=== PATIENT | male | born 1985 | race Caucasian/White ===

== ENCOUNTER 2024-04-16 06:47 | Inpatient (IN) | payer OTHER, SELFPAY ==
[2024-04-16] VITALS (46 sets, daily range): BP systolic 88–145; BP diastolic 57–95; BMI 33.5; BMI 31.3
[2024-04-16] MEDS: ZOFRAN 4 MG IV (02:02)
[2024-04-16 02:03] LABS: % Basophils 0.8 % (0-2); % Eosinophils 5.9 % (0-6); % Lymphocytes 25.6 % (20.5-51.1); % Monocytes 7.2 % (1.7-9.3); % Neutrophils 58.5 % (42.2-75.2); Absolute Basophils 0.1 10^3/uL (0-0.2); Absolute Eosinophils 0.9 10^3/uL (0-0.7); Absolute Immature Granulocytes 0.3 10^3/uL (0-0.05); Absolute Lymphocytes 3.8 10^3/uL (1.2-3.4); Absolute Monocytes 1.1 10^3/uL (0.1-0.6); Absolute Neutrophils 8.6 10^3/uL (1.4-6.5); Hematocrit 29.5 % (39.0-52.0); Hemoglobin 9.7 g/dL (13.0-18.0); Mean Corp Hgb Conc. 32.9 g/dL (33.0-37.0); Mean Platelet Volume 11.3 fL (7.4-10.4); Nucleated Red Blood Cells % 0 % (-); Platelet Count 256 10^3/uL (130-400); Red Blood Cell Count 3.47 10^6/uL (4.70-6.10); Red Cell Dist. Width 13.9 % (11.5-14.5); White Blood Cell Count 14.7 10^3/uL (4.8-10.8)
[2024-04-16] MEDS: NSS 1000 IV ×3 (02:03→07:23)
[2024-04-16 02:16] LABS: ALT (SGPT) 23 U/L (0-50); AST (SGOT) 21 U/L (17-59); Albumin 3.9 g/dl (3.5-5.0); Alkaline Phosphatase 71 U/L (38-126); Blood Urea Nitrogen 41 mg/dl (9-20); Calcium 9.1 mg/dl (8.4-10.2); Carbon Dioxide 20 mmol/L (22-30); Chloride 104 mmol/L (98-107); Estimated Creatinine Clearance > 125 ml/min; Glucose 152 mg/dl (70-99); Potassium 4.8 mmol/L (3.5-5.1); Sodium 138 mmol/L (135-145); Total Bilirubin 0.4 mg/dl (0.2-1.3); Total Protein 6.3 g/dl (6.3-8.2); eGFR > 60.00
[2024-04-16 02:18] LABS: Lactic Acid 3.4 mmol/L (0.7-2.0)
--- NOTE | 2024-04-16 02:21 | ED.GENMED ---
History of Present Illness
General
Chief Complaint: Weakness
Time Seen by Provider: 04/16/24 02:00
History of Present Illness
History of Present Illness:
38-year-old male with history of recent diagnosis of Lyme's disease presenting to the emergency department for generalized weakness, fatigue, syncope. Patient had 2 syncopal episodes prior to arrival. Patient arrives with family, note recent
prolonged hospitalization at [facility] for sepsis. Patient had array of testing including lumbar puncture, MRI, laboratory analysis. Only positive feature in workup was Lyme's disease. Patient had been treated with antivirals and
antibiotics and discharged home. He is scheduled to follow-up with infectious disease this week. He was discharged about a week and a half ago. Family notes that he has had waxing and waning weakness and fatigue. Today was worse than it had been
in the past, but patient is very pale. Patient himself denies chest pain, cough, fever. Does note some generalized abdominal discomfort without vomiting or changes in stool. Patient has never passed out from his symptoms. No additional history
obtained at this time
Phy Exam
Physical Exam
Physical Exam:
General: Very pale, fatigued in appearance
HEENT: protecting airway
Neck: appears supple
CV: Normal heart rate, regular rhythm
Resp: No accessory muscle use, no increased work of breathing, lungs clear to auscultation bilaterally
Abd: Soft and non-distended, generalized nonfocal tenderness without rebound or guarding
Extremities: No deformities, no swelling, no erythema, pulses and sensation intact
Neuro: alert, no focal neurologic deficit. Slow to respond, however answering questions appropriately. Moving all extremities equally, however 4/5 strength in lower extremities, equal bilaterally
: deferred
Rectal: deferred
Psych: Normal affect
Skin: Intact
Sepsis
Sepsis Screening
Sepsis Assessment: Septic Shock
Sepsis Screening: Lactate >2mmol/L and Hypotension
Sepsis Screen
Sepsis Screen: Septic Shock
Date: 04/17/24
Time: 11:06
Course
Orders/Labs/Results
Orders:
Orders
04/16/24 01:49
Electrocardiogram (*1) Urgent
Reason for Study: Other
Other Reason for Exam: Possible Sepsis
Cardiac Monitoring- Treatment ONCE
EKG- Treatment ONCE
IV Insert/Care/Rem.- Treatment PRN
Straight cath- Treatment ONCE
O2 Therapy [RESP] Urgent
Titrate/Wean O2 to maintain O2 sat greater than (%): 93
Special Instructions: TO MAINTAIN CONTINUOUS O2 SATS > OR = 93%
Pulse Ox/cont/shift [RESP] Urgent
Quantity: 1
Special Instructions: CONTINUOUS
04/16/24 01:53
Complete Blood Count/With Diff Urgent
Comprehensive Metabolic Panel Urgent
Ferritin Urgent
Folate Urgent
Comment: SERUN IRON,FERRITIN,TIBC,B12,FOLATE ADDED ON BY FLOOR 7:50AM 04-16-24
Iron Urgent
Lactic Acid Q4H
Comment: ON ICE, CANCEL 2ND ORDER IF FIRST LACTIC ACID LEVEL <2
Lipase Urgent
Comment: LIPASE ADDED ON BY FLOOR 9:45AM 04-16-24
Total Iron Binding Urgent
Urinalysis Reflex To Culture Urgent
Date Specimen was Collected: 04/16/24
Time Specimen was Collected: 01:49
Vitamin B12 Urgent
04/16/24 01:55
Type+Screen Urgent
04/16/24 01:57
Ondansetron Injectable [Zofran] 4 mg .ROUTE .STK-MED ONE
04/16/24 02:00
0.9% Sodium Chloride 1000 ml [Nss] 1,000 ml IV BOLUS
Ondansetron Injectable [Zofran] 4 mg IV NOW STA
04/16/24 02:06
COVID-19 Antigen Urgent
Source: Nasal Swab
04/16/24 02:20
CT Abd/pelvis W Iv Cont Urgent
Comment:
Reason For Exam: generalized pain, pale and weak
04/16/24 02:21
ABO2 Urgent
BBK Wristband Number:
Associate notified that ABO2 has been ordered: [id number]
Date: 04/16/24
Time: 02:20
Road Grader Operator ID: [id number]
04/16/24 02:26
0.9% Sodium Chloride 1000 ml [Nss] 1,000 ml IV BOLUS
Piperacillin/Tazo 4.5 Gram [Zosyn] 4.5 gram in 100 ml IV NOW
04/16/24 03:01
Blood Culture Routine
ILAN Source: Blood/Venous
Specimen Description:
Blood Culture Urgent
ILAN Source: Blood/Venous
Specimen Description:
04/16/24 05:30
Pantoprazole 80 mg/100 ml Nss [Protonix] 80 mg in 100 ml IV Q10H
04/16/24 05:34
Complete Blood Count/With Diff Urgent
Lactic Acid Q4H
Comment: ON ICE, CANCEL 2ND ORDER IF FIRST LACTIC ACID LEVEL <2
Prothrombin Time Urgent
04/16/24 05:52
* Blood Bank Products Urgent
Blood Bank Products: *Packed RBC Leuko(PRBC's)
Quantity: 2
Transfuse Today: Yes
Reason: Bleeding
04/16/24 Breakfast
NPO
Allow oral meds: Yes
Allow clear liquids: Sips of Clears
04/16/24 06:07
Ct Cta A/P W/Wo Urgent
Reason For Exam: GI bleed
04/16/24 06:35
Admit/Transfer Patient As Directed
Co-Sign Provider:
Level of Care: Inpatient admission
Assign to:: ICU
Physician / Group: [facility]
Diagnosis: GI Bleed, Severe Symptomatic Anemia
Reason for Hospitalization: GI Bleed, Severe Symptomatic Anemia
Expected length of stay greater than two midnights?: Yes
ELOS- Estimated Length of Stay in days: 5
I certify the patient meets the requirements for IP care: Yes
PRN Pain Medication Management As Directed
May give lesser potent ordered pain med per pt: Yes
preference::
Protocol:: Medication orders for pain may be administered in a
manner that supports deferring to patient preference
when the pt is:
- Requesting an ordered lesser potent pain medication.
Least to most potent pain medications are defined
as: acetaminophen < NSAID < tramadol < opioids
(morphine, oxycodone, hydromorphone).
- Requesting a lesser dose of the same medication IF
ORDERED.
- Requesting a less intrusive route of administration
if both routes are prescribed by the provider (PO <
IV).
04/16/24 06:37
Code Status As Directed
Resuscitation Status: Full Code
04/16/24 07:19
0.9% Sodium Chloride 1000 ml [Nss] 1,000 ml IV 250 mls/hr
04/16/24 07:37
Acetaminophen [Tylenol] 650 mg PO Q4HPRN PRN
Ondansetron Injectable [Zofran] 4 mg IV Q6HPRN PRN
Pantoprazole 80 mg/100 ml Nss [Protonix] 80 mg in 100 ml IV Q10H
04/16/24 07:37
Consult Notification Routine
Specialty to Notify: Parking Supervisor
Date consulting provider notified: 04/16/24
Time consulting provider notified: 08:23
Notified:: Provider
GASTROINTESTINAL CONSULT Routine
Consulting Provider: Negra Stubbs
Was physician already notified: Yes
Reason for consult: GI Bleed
Parking Supervisor Consult Routine
Consulting Provider: Loulou Khalil
Was physician already notified: No
Reason for consult: GI Bleed, Severe Anemia
Activity As Directed
Activity Level: Bedrest
EKG with chest pain [ECG as needed] As Directed
ECG as needed for:: Chest Pain
I/O [Intake/ Output] As Directed
Frequency: Per unit guidelines
Pneumatic Compression Sleeves As Directed
Type: Knee high
Records Request [Obtain Records] As Directed
Dates of Information to be Released: Most Recent
Type of Information Requested: Entire Record
Obtain Records from: [facility]
Vital Signs As Directed
Frequency: Per unit guidelines
Weight As Directed
Frequency: Daily
Oxygen Therapy [O2 Therapy] [RESP] Routine
Titrate/Wean O2 to maintain O2 sat greater than (%): 94
DX Deep Vein Thrombosis Video Routine
04/16/24 07:59
HH [H&H] Q6H
LDH Urgent
04/16/24 19:40
HH [H&H] Q6H
04/17/24 01:21
HH [H&H] Q6H
04/17/24 05:49
Basic Metabolic Panel IN AM
Abnormal Lab Results
04/16/24 04/16/24 04/16/24
01:53 01:55 05:34
WBC 14.7 H 10^3/uL
(4.8-10.8)
RBC 3.47 L 10^6/uL 1.49 L 10^6/uL
(4.70-6.10) (4.70-6.10)
Hgb 9.7 L g/dL 4.1 L* D g/dL
(13.0-18.0) (13.0-18.0)
Hct 29.5 L % 12.5 L* %
(39.0-52.0) (39.0-52.0)
MCHC 32.9 L g/dL 32.8 L g/dL
(33.0-37.0) (33.0-37.0)
Plt Count 127 L D 10^3/uL
(130-400)
MPV 11.3 H fL 11.1 H fL
(7.4-10.4) (7.4-10.4)
Abs Immat Gran (auto) 0.3 H 10^3/uL 0.2 H 10^3/uL
(0-0.05) (0-0.05)
Absolute Neuts (auto) 8.6 H 10^3/uL
(1.4-6.5)
Absolute Lymphs (auto) 3.8 H 10^3/uL
(1.2-3.4)
Absolute Monos (auto) 1.1 H 10^3/uL
(0.1-0.6)
Absolute Eos (auto) 0.9 H 10^3/uL
(0-0.7)
Immature Gran % 2.0 H % 2.2 H %
(0-0.5) (0-0.5)
Lymphocytes % 20.0 L %
(20.5-51.1)
PT 19.3 H Sec
(11.4-14.6)
Carbon Dioxide 20 L mmol/L
(22-30)
BUN 41 H mg/dl
(9-20)
Glucose 152 H mg/dl
(70-99)
Lactic Acid 3.4 H mmol/L 2.3 H mmol/L
(0.7-2.0) (0.7-2.0)
TIBC 229 L ug/dl
(261-462)
Crossmatch IS Only See Detail
04/16/24 05:34
04/16/24 01:53
Vital Signs
Initial and Last Documented VS:
Initial Vital Signs
Temp Pulse Resp BP Pulse Ox
98.1 F 106 30 110/86 99
04/16/24 01:40 04/16/24 01:40 04/16/24 01:40 04/16/24 01:40 04/16/24 01:40
Last Documented Vital Signs
Temp Pulse Resp BP Pulse Ox
98.1 F 83 18 146/91 96
04/17/24 10:14 04/17/24 10:14 04/17/24 10:14 04/17/24 10:14 04/17/24 08:00
MDM/Problems Addressed
MDM/Problems Addressed:
38-year-old male with history of recent Lyme's disease and complicated hospital admission for sepsis at [facility] presenting for weakness, fatigue, syncope. Vital signs on arrival significant for tachycardia.
On exam, patient is in no acute distress, however does appear generally unwell. He is very pale, weak and fatigued in appearance. Unremarkable cardiac and pulmonary exam. On neurologic exam, answering questions appropriately, strength and
sensation intact all extremities, however generalized weakness to the lower extremities. Abdominal exam, soft nondistended with generalized nonfocal tenderness. Unclear etiology of patient's symptoms, however concern for possible anemia given his
paleness. Will initiate broad workup given recent hospital admission and worsening status. Will obtain laboratory analysis, lactic acid, cultures, and also had CT abdomen pelvis given patient's tenderness. Will start patient on IV fluids.
02:20 - Hemoglobin is 9.4, without indication for transfusion. Lactic acid is greater than 3. Will continue IV fluids. Patient is now meeting sepsis criteria, also leukocytosis. Blood pressure is slightly low. Will start broad-spectrum
antibiotics.
02:45-patient vomited, dark brown, Hemoccult positive
05:00 -CT without acute process. After 2 L of fluids, blood pressure is still slightly low, however maintaining normal MAP. Will continue IV fluids and continue to monitor. At this time, unclear source of infection. Plan for admission for
continued hemodynamic monitoring
05:20 -patient just had a large bowel movement, dark red blood. GI made aware
05:50 -hemoglobin is now 4.1. Patient consented. Ordering 2 units of blood
07:00 -called by radiology, no active signs of arterial bleed on GI bleeding scan. GI at bedside, plan for endoscopy for suspected upper source.
*Critical Care Note
Total Time (30-74mins, 75-104mins- exclusive of procedures): 62 (62)
comment:
The high probability of a clinically significant, sudden or life threatening deterioration, sepsis, required my full and direct attention, intervention and personal management. The aggregate critical care time was 62 minutes. This time is in
addition to time spent performing reported procedures but includes the following:
[x] Data Review and interpretation
[x] Patient assessment and monitoring of vital signs
[x] Documentation
[x] Medication orders and management
ED Attending Note
-
Portions of this chart may have been created with voice recognition software.� Occasional wrong word or��sound alike� substitutions may have occurred due to the inherent limitations of voice recognition software.
Discharge Plan
Departure
Patient Disposition: Admit
Date of Disposition: 04/16/24
Time of Disposition: 05:11
Presentation/result/management discussed w/ accepting MD/DO: Hospitalist
Condition: Fair
Discharge Problem:
Sepsis, Weakness, GI bleed
Interventions
Interventions:
*Risk Screen - Suicide Last Done: 04/16/24 10:04
*General Assessment Last Done: 04/16/24 07:02
*Neglect/Abuse Screening Last Done: 04/16/24 01:40
ED- Fall Risk Assessment Last Done: 04/16/24 07:02
*ED COVID-19 Vaccine History Last Done: 04/16/24 07:02
*Nursing Disposition Last Done: 04/16/24 08:06
ED- Cardiac Assessment Last Done: 04/16/24 07:02
ED- Neurological Assessment Last Done: 04/16/24 07:02
ED- Pulmonary Assessment Last Done: 04/16/24 07:02
Discharge Date and Time
Discharge Date/Time: 04/16/24 08:06
[2024-04-16 02:27] LABS: COVID-19 Antigen Negative (Negative)
[2024-04-16] MEDS: ZOSYN 100 IV (02:57)
[2024-04-16] MEDS: PROTONIX 100 IV ×2 (05:40→16:50)
[2024-04-16 05:48] LABS: % Basophils 0.1 % (0-2); % Eosinophils 0.7 % (0-6); % Immature Granulocytes 2.2 % (0-0.5); % Monocytes 5.1 % (1.7-9.3); % Neutrophils 71.9 % (42.2-75.2); Absolute Eosinophils 0.1 10^3/uL (0-0.7); Absolute Immature Granulocytes 0.2 10^3/uL (0-0.05); Absolute Lymphocytes 1.5 10^3/uL (1.2-3.4); Absolute Monocytes 0.4 10^3/uL (0.1-0.6); Absolute Neutrophils 5.3 10^3/uL (1.4-6.5); Hematocrit 12.5 % (39.0-52.0); Hemoglobin 4.1 g/dL (13.0-18.0); Mean Corp Hgb Conc. 32.8 g/dL (33.0-37.0); Mean Corpuscular Hgb 27.5 pg (27.0-31.0); Mean Corpuscular Volume 83.9 fL (80.0-94.0); Mean Platelet Volume 11.1 fL (7.4-10.4); Nucleated Red Blood Cells % 0 % (-); Platelet Count 127 10^3/uL (130-400); Red Blood Cell Count 1.49 10^6/uL (4.70-6.10); White Blood Cell Count 7.3 10^3/uL (4.8-10.8)
[2024-04-16 05:50] LABS: Urine Albumin Negative (Neg - Trace); Urine Bilirubin Negative (Negative); Urine Character Clear (Clear); Urine Color Straw; Urine Glucose Negative (Negative); Urine Ketone Negative (Negative); Urine Leukocyte Negative (Negative); Urine Nitrite Negative (Negative); Urine Occult Blood Negative (Negative); Urine Urobilinogen Negative (Neg - 1+)
[2024-04-16 05:53] LABS: Lactic Acid 2.3 mmol/L (0.7-2.0)
[2024-04-16 05:58] LABS: INR 1.64; PT 19.3 Sec (11.4-14.6)
--- NOTE | 2024-04-16 06:30 | CON.GI ---
Addendum entered and electronically signed by Negra Stubbs DO 04/16/24 09:21:
Patient seen and examined independently of FADUMO. I agree with her note with my additions below
History is taken from his mother who is at bedside, the patient and the chart
Apparently neck has been ill for the last couple of months and was recently discharged from [facility] for sepsis with a questionable Lyme's disease after an extensive workup. He was home for couple of weeks. He has been on doxycycline and
taking 1-2 Aleve daily for body pains. States he was supposed to be taking omeprazole to protect his stomach but he was not. He had been having 1-2 brown formed stools daily then yesterday he syncopized twice upon standing. Has had reduced
appetite. Generalized aches and pains and joint pain. Denies any chronic GI issues prior to this. No prior history of GI bleed. Not on any blood thinners. Does feel nauseous and has significant epigastric tenderness. Had coffee-ground emesis
last night and passed maroon stool from the rectum. He is mildly tachycardic but hemodynamically stable. PPI drip, empiric antibiotics symptoms started. Has been transfused [address] abdomen pelvis with IV contrast was unrevealing.
CTA report is pending. His hemoglobin and labs have been somewhat all over the place.
# GI bleed -currently hemodynamically stable blood pressure 124/70 with a heart rate of 70.
-- Likely NSAID induced, more likely upper GI in the setting of significant NSAIDs and doxycycline not on PPI at home
-- Had coffee-ground emesis last night with maroon stool this morning
-- PPI drip started, receiving 2 units of blood - patient did NOT get loading dose of 80mg IV - ordered now
-- CT angio night read shows no definitive active extravasation in the colon and intraluminal density in the duodenum. No active extravasation identified on the current exam.
--- Hemoglobin on admission was 9.7 then dropped to 4.1 and after 1 unit was 7.4. These seem somewhat unreliable -currently getting second unit
--- His INR was 1.6, no history of liver disease or heavy alcohol use. Has not had any alcohol in a year and a half since his daughter was born. Did give him IV vitamin K. He has not been eating well perhaps somewhat deficient
--Plan for EGD this afternoon
--Discussed with his mother, Dora at bedside
Original Note:
Consultation
-
Date/Time Consultation Requested: 04/16/24
Date/Time Consultation Performed: 04/16/24 @ 06:30
Requesting Provider: Bridget Han
Performing Provider: FADUMO Jacobsen; Dr. Negra Stubbs
Reason for Consultation: GI bleed
Medical History
Chief Complaint / HPI
Chief Complaint: weakness
History of Present Illness:
The pt is 38 yo male with a PMH significant for Lyme's disease recently diagnosed who presented to the ER with complaints of weakness, fatigue, and syncope at home. We are being asked to evaluate for GI bleed. The patient reportedly had been
diagnosis of Lyme's disease with extensive workup and hospitalization at [place] for sepsis. Per the patient's mother they cannot find any other explanation for his severe fatigue and weakness that he has been experiencing the past month. After
discharge he continued with symptoms, increasingly fatigued and experiencing generalized body pains. He reports that he was taking Aleve up to twice a day every day for the past week to manage the pain. Yesterday he had 2-3 syncopal episodes at
home where he lost consciousness witnessed by his . He denies any passage of black or dark stool at home although he was not paying attention to the color of his stool recently. He notes that he has been losing weight unintentionally given he
has had a reduced appetite with his ongoing symptoms. He does admit to chills and feeling feverish yesterday evening. He reports generalized pain throughout his entire body, but does not have a tenderness in his upper abdomen which developed last
night. He denies any chronic GI problems prior to this onset. He denies any history of GI bleed. He denies any use of blood thinners. He denies any further vomiting, but does still feel nauseous. He denies any prior EGD or colonoscopy. He
denies any prior history of liver disease or alcohol use. Upon evaluation in the ER hgb initially was 9.7. The pt reportedly had an episode of coffee ground emesis which was heme + along with a large volume of dark red blood passed from his rectum.
A CT A/P was obtained initially, and now CTA which is pending. His repeat hgb dropped to 4.1 and 2 units were ordered for infusion urgently. He has been mildly tachycardic but hemodynamically stable thus far. PPI gtt was started along with IV Zosyn
for concern of sepsis. EKG showed SR at 100bpm with incomplete RBBB. He is being admitted to the ICU for further evaluation and management. Other pertinent lab findings include platelets 127,000, INR 1.64, BUN 41, sodium HCO3 20, lactic acid 3.4,
with normal LFTs.
Past Medical History
Past Medical History: Other (Lyme's disease)
Past Surgical History: Orthopedic (Spinal fusion)
Social History
Tobacco: Non-Smoker
Alcohol: None
Drug: None
Living: With Family
Family History
Family History: Reviewed & Not Pertinent
Allergies / Home Medications
Allergy/AdvReac Type Severity Reaction Status Date / Time
NKA - No Known Allergies Allergy Severe Uncoded 11/04/07 12:24
Review of Systems
-
History Source: Patient
Constitutional: Reports Fever, Weight Loss and Chills
EENT: Reports No Symptoms
Respiratory: Reports No Symptoms
Cardiac: Reports Syncope
Abdomen/GI: Reports Abdominal Pain, Nausea, Vomiting, Bloody Stools and Other (Coffee-ground emesis)
: Reports No Symptoms
Musculoskeletal: Reports Other (Generalized body pain)
Skin: Reports No Symptoms
Neurological: Reports Dizzy and Weakness
Vital Signs
Temp Pulse Resp BP Pulse Ox
98.1 F 110 22 115/71 99
04/16/24 03:43 04/16/24 06:00 04/16/24 05:45 04/16/24 06:00 04/16/24 05:45
Physical Exam
Exam
General: Other (Ill-appearing, pale)
HEENT: Normocephalic and Atraumatic
Respiratory: Clear
Cardiac: S1/S2, Regular Rhythm and Other (Sinus tachycardia on telemetry monitoring)
Breast: N/A
GI: Soft, Normal Bowel Sounds, Tender (Significant tenderness in the midepigastric area with generalized tenderness throughout the abdomen) and Distended (Minimally distended)
Rectal: Deferred by Provider and Other (Per ER documentation with passage of dark red blood per rectum)
Musculoskeletal: No Edema
Skin: Warm and Dry
Neuro: Awake, Alert and Oriented
Psych: Calm
Results
WBC 7.3 10^3/uL (4.8-10.8) 04/16/24 05:34
Hgb 4.1 g/dL (13.0-18.0) L* D 04/16/24 05:34
Hct 12.5 % (39.0-52.0) L* 04/16/24 05:34
MCV 83.9 fL (80.0-94.0) 04/16/24 05:34
Plt Count 127 10^3/uL (130-400) L D 04/16/24 05:34
Absolute Neuts (auto) 5.3 10^3/uL (1.4-6.5) 04/16/24 05:34
PT 19.3 Sec (11.4-14.6) H 04/16/24 05:34
INR 1.64 04/16/24 05:34
Sodium 138 mmol/L (135-145) 04/16/24 01:53
Potassium 4.8 mmol/L (3.5-5.1) 04/16/24 01:53
Chloride 104 mmol/L (98-107) 04/16/24 01:53
Carbon Dioxide 20 mmol/L (22-30) L 04/16/24 01:53
BUN 41 mg/dl (9-20) H 04/16/24 01:53
Creatinine 0.8 mg/dL (0.7-1.3) 04/16/24 01:53
Calcium 9.1 mg/dl (8.4-10.2) 04/16/24 01:53
Total Bilirubin 0.4 mg/dl (0.2-1.3) 04/16/24 01:53
AST 21 U/L (17-59) 04/16/24 01:53
ALT 23 U/L (0-50) 04/16/24 01:53
Alkaline Phosphatase 71 U/L (38-126) 04/16/24 01:53
Diagnostic Image Results:
04/16/24 CTA pending
Prior GI Procedures:
EGD: none
Colonoscopy: none
Assessment / Plan
-
The pt is 38 yo male with a PMH significant for Lyme's disease recently diagnosed who presented to the ER with complaints of weakness, fatigue, and syncope at home, found to have findings concerning for significant GI bleed with a drop of
hemoglobin from 9.7-4.1. He had a prolonged hospitalization at [facility] for workup of fatigue and fevers found to have findings consistent with Lyme disease treated with antibiotics and antivirals, for follow-up with infectious disease
outpatient. He is continue with symptoms and had syncope at home x 2-3 episodes prompting evaluation in the emergency room. He had nausea with vomiting of coffee-ground emesis that was heme positive along with a large volume dark red passage of
blood from his rectum. He underwent CT of the abdomen and pelvis initially prior to the bleeding which was unrevealing per ER documentation. CTA is pending. He is overall hemodynamically stable with urgent blood transfusion pending. He was
placed on a PPI drip. He had been taking Aleve twice a day for the past week. Other pertinent findings include BUN 41, INR 1.64, lactic acid 3.4, platelets 127,000, with normal LFTs. He has no history of liver disease or alcohol use.
Problem list:
-Syncope
-GI bleed, with coffee-ground emesis and large volume burgundy stool with recent use of NSAIDs, course of antibiotics with elevated BUN 41
-Recent diagnosis of Lyme's disease
-Fatigue, fevers, weakness, likely secondary to Lyme's disease
-Lactic acidosis
-Mild thrombocytopenia
-Elevated INR
Recommendations:
-Etiology of bleeding likely secondary to upper GI bleed with recent use of NSAIDs, elevated BUN, and syncope (PUD v AVM v other). Likely brisk upper with passage of burgundy stool v small bowel versus lower GI source versus other.
---CTA is pending. If active bleeding consider IR intervention. I do not feel there is underlying liver disease given no significant alcohol use or other history to support this.
-Agree with PPI drip
-Discussed with Dr. Stubbs, will give 1 dose of IV vitamin K with elevated INR, likely due to poor nutrition
-Transfuse 2 units of packed red blood cells and repeat H&H to maintain a hemoglobin greater than 7
-Plan for eventual EGD once he is optimized and stable
-ICU level of care, with close hemodynamic monitoring
-Large-bore IV's
-Continue n.p.o.
-PRN analgesics and antiemetics
-AVOID NSAID's
-Further management pending above
-
-
Thank you for consultation and allowing me to participate in the patient's care. Please call the driver's education instructor GI physician during the after hours with any questions or concerns.
--- NOTE | 2024-04-16 06:41 | HPS.HSE ---
Family Physician
-
Family Physician: FADUMO Townsend
Chief Complaint
-
Syncope
History of Present Illness
Patient is a 38y M with PMH significant for peripheral neuropathy / back pain who presents to ED complaining of syncope. Patient notes that he was hospitalized twice at [facility] within the past month. He describes myalgias / diffuse
joint pains and fever. He was diagnosed initially with Lyme disease and prescribed doxycycline. However, his symptoms progressed. He was re-admitted with sepsis and treated with IV abx (Linezolid and Ceftriaxone) as well as IV antivirals (?). He
states that the only positive test / culture that resulted was Lyme. He was eventually discharged to home in improved condition - though he still had some residual diffuse aches and pains.
Since he has been home, he has been mostly confined to bed due to overwhelming fatigue.
He states that today he passed out 3 separate times when trying to stand / walk.
Patient denies any significant injury / trauma as a result of these falls. After his 3rd fall this evening, he presented to the ED for evaluation.
In the ED, patient had a large, bloody BM with dark / maroon colored blood.
Patient denies any blood in the stool prior to this - though he admittedly states he does not look at it.
He does report that his stool have been 'smellier' than usual.
In addition to his initial course of doxycycline, patient states that he has been taking Aleve twice daily every day for his diffuse muscle pains / aches.
Medical History
Past Medical History
Past Medical History: Reports Other
Additional Past Medical History:
Lumbar DDD
Peripheral Neuropathy
Past Surgical History: Reports Other
Additional Past Surgical History:
Microdiscectomy
Lumbar Fusion
Social History
Tobacco: Former Smoker (Quit smoking in 2009. < 10 pack years total use.)
Alcohol: None
Drug: None
Personal:
Living: With Family
Family History
Family History: CAD and Other (Thyroid disease)
Allergies / Home Medications
Allergies reflects when Allergies were last updated in [employer].
Home Medications with original date entered in [employer]
Allergy/Medication List:
Allergies
Allergy/AdvReac Type Severity Reaction Status Date / Time
NKA - No Known Allergies Allergy Severe Uncoded 11/04/07 12:24
Home Medications
No Meds [No Current Medications] 04/16/24
Review of Systems
-
History Source: Patient
A 12 point ROS was completed and negative except as noted: Yes
Constitutional: Reports Fatigue; Denies Fever or Chills
EENT: Reports Sore Throat
Respiratory: Reports Cough; Denies Trouble Breathing
Cardiac: Reports Syncope; Denies Chest Pain
Abdomen/GI: Reports Abdominal Pain, Nausea and Bloody Stools; Denies Vomiting or Diarrhea
: Denies Dysuria, Frequency or Bleeding
Musculoskeletal: Reports Muscle Pain; Denies Joint Pain or Edema
Neurological: Reports Dizzy; Denies Headache
Psych: Denies Depression or Anxiety
Physical Exam
Vital Signs
Vital Signs
Temp Pulse Resp BP Pulse Ox
98.1 F 110 22 115/71 99
04/16/24 03:43 04/16/24 06:00 04/16/24 05:45 04/16/24 06:00 04/16/24 05:45
Physical Exam
General: Other (Extremely pale, ill-appearing 38y M. Able to answer questions / follow commands.)
HEENT: Other (Dry MM. Neck supple.)
Respiratory: Clear; No Wheezes, Rales or Rhonchi
Cardiac: S1/S2 and Tachycardia; No Murmur
GI: Soft, Non Distended, Normal Bowel Sounds and Other (Mild tenderness in the LUQ and RLQ. No rebound /guarding.)
Musculoskeletal: No Clubbing, No Cyanosis and No Edema
Neuro: AO x 3
Laboratory Results
-
04/16/24 05:34
04/16/24 01:53
Laboratory Results
PT 19.3 Sec (11.4-14.6) H 04/16/24 05:34
INR 1.64 04/16/24 05:34
Lactic Acid 2.3 mmol/L (0.7-2.0) H 04/16/24 05:34
Total Bilirubin 0.4 mg/dl (0.2-1.3) 04/16/24 01:53
AST 21 U/L (17-59) 04/16/24:53
ALT 23 U/L (0-50) 04/16/24:53
Alkaline Phosphatase 71 U/L (38-126) 04/16/24 01:53
Impression/Plan
-
A/P: Patient is a 38y M with PMH significant for prior lumbar fusion who presents to ED complaining of multiple syncopal episodes in the past 24 hours.
GI Bleed - Likely Upper
Acute Blood Loss Anemia secondary to the above
Hypovolemic Shock secondary to the above
Lactic Acidosis secondary to the above
- Admit to ICU for further evaluation and treatment.
- Hgb in the ED fell from 9.7 to 4.1 - suspect initial reading was falsely hemoconcentrated.
- Transfusion of 2 units PRBCs ordered in the ED.
- CTA ordered and is pending to attempt to localize the source of bleeding.
- Consider GI versus IR intervention depending on these results.
- Aggressive IVFs / volume resuscitation.
- GI / Bath House Attendant evaluations for additional recommendations.
- Suspect upper source of bleeding with recent doxycycline and then ongoing naproxen.
- Hold further NSAIDs.
- Follow H&H and provide additional blood products as needed.
- Follow for clinical improvement.
- +/- pressor support if needed.
Recent Sepsis Hospitalization
Lyme Disease
- Patient is currently afebrile and initial leukocytosis was likely inaccurate.
- No specific evidence of acute / recurrent infectious process at present.
- Initial CT A/P was unremarkable.
- Observe off of additional abx for now.
- Follow temperature curve, any culture data, etc.
- Send for records from [facility] for review.
Lumbar DDD
- Stable. No acute back pain or similar issues.
- s/p lumbar fusion done 12 years ago.
DVT Prophylaxis: SCDs
Code Status: Full
--- NOTE | 2024-04-16 06:59 | EDRN ---
the pt was received by the previous manufacturing shift supervisor nurse Spencer CONDON, the pt is resting in stretcher in the lowest position, side rails up x2, call redd within reach, HOB flat per the pts request, VS WNL, the pt is pale and lethargic, the pts mother is
currently at the pts bedside with the pt, GI at the pts bedside as well speaking withe the pt and the pts mother about possible endoscopy today, Protonix gtt currently running @ 8mg/hour, blood is currently running as well, the pt states that he
does not need to have a bowel movement or urinate at this time, the pt is currently on bed rest per GI, plan of care was discussed with the pt and the pts mother, will continue to monitor the pt closely
--- NOTE | 2024-04-16 07:09 | EDRN ---
Phytonadione was ordered for the pt, this RN called pharmacy to verify and send this RN the medication
--- NOTE | 2024-04-16 07:14 | EDRN ---
the pt is resting in stretcher, no s/s of reaction from blood transfusion, VS WNL, sinus tachy at 108bpm, last BP 100/66 (77), the pt is currently on RA Sp02 99%, no c/o chest pain, no c/o SOB, no complaints offered at this time, still currently
waiting for pharmacy to send phytonadione, awaiting for an ICU bed, will continue to monitor the pt closely
--- NOTE | 2024-04-16 07:25 | EDRN ---
NSS IVF hung and running at 250cc/hour
--- NOTE | 2024-04-16 07:25 | EDRN ---
still currently waiting for pharmacy to send [email or web address]
[2024-04-16] MEDS: AQUAMEPHYTON 51 MG IV (07:32)
--- NOTE | 2024-04-16 07:38 | EDRN ---
orders processed for the pt, pharmacy called and notified
--- NOTE | 2024-04-16 07:43 | EDRN ---
verbal report called to the receiving ICU nurse Gisele CONDON
--- NOTE | 2024-04-16 07:50 | EDRN ---
the pt pressed the call redd and this RN entered the pts room, the pt stated that he had to have a bowel movement, the pt was placed on the bedpan and was given a urinal, the pt wanted privacy, this RN will wait outside of the pts room, call redd
within reach
--- NOTE | 2024-04-16 08:04 | EDRN ---
the pt had a large bloody bowel movement that was loose, the pt urinated 700cc of urine, the pt was cleaned, new pad placed under the pt, the pt was repositioned for comfort, labs drawn and sent
[2024-04-16 08:22] LABS: Iron 103 ug/dl (49-181)
[2024-04-16 08:25] LABS: LDH 99 U/L (120-246)
--- NOTE | 2024-04-16 08:28 | CON.INTV ---
Consultation
Consultation Request
Date/Time Consultation Requested: 04/16/24
Date/Time Consultation Performed: 04/16/24
Performing Provider: Simran
Reason for Consultation: ICU
Medical History
-
History of Present Illness:
Patient is a 38-year-old male with previous history of peripheral neuropathy, back pain, recently treated for Lyme's disease presenting to ER for syncope. He was recently hospitalized at [facility] for diffuse myalgias, arthralgias and fever. He was
diagnosed with Lyme disease and placed on doxycycline. He was then readmitted for severe sepsis treated with IV antibiotics including linezolid and ceftriaxone. Upon discharge she had ongoing fevers, joint pain for which she was taking Aleve twice
a day. He then developed significant generalized weakness and fatigue with new syncope. Reportedly syncopized 3 times at home. Upon arrival to ER, there was notably a large bloody bowel movement and hematemesis. Hemoglobin initially 9.7 which
then decreased to 4.1. He is transfused PRBCs and admitted to ICU for acute GI bleed, suspected upper. Was evaluated by GI and planning to undergo endoscopy today.
No prior history of GI disease including previous bleed, colon cancer. Denies family history.
Denies smoking and alcohol use.
Past Medical History
Past Medical History: Other (see list below)
Social History
Tobacco: Non-smoker
Alcohol: None
Drug: None
Family History
Family History: Reviewed & Not Pertinent
Allergies / Home Medications
Allergies
Allergy/AdvReac Type Severity Reaction Status Date / Time
NKA - No Known Allergies Allergy Severe Uncoded 11/04/07 12:24
Home Medications
�Medication �Instructions �Recorded �Confirmed �Last Taken �Type
No Meds [No Current Medications] 04/16/24 04/16/24 Unknown History
Review of Systems
-
History Source: Patient
All other systems: Negative unless noted
Vitals / Labs / Diagnostic Testing
Vital Signs
Temp Pulse Resp BP Pulse Ox
98.2 F 106 16 116/82 99
04/16/24 08:03 04/16/24 08:05 04/16/24 08:05 04/16/24 08:05 04/16/24 08:05
Lab Data
04/16/24 01:53
Laboratory Results
04/16/24
05:34
PT 19.3 H
INR 1.64
Diagnostic Testing:
Physical Exam
-
HEENT: Normocephalic, Anicteric and Moist Mucous Membranes
Cardiovascular: S1/S2 and Regular Rhythm
Respiratory: Clear and Non-Labored Respirations
GI: Soft, Non Distended and Non Tender
Neurology: Awake, Alert, No Motor Deficits and Other (anxious appearing, diaphoretic, with chills)
General: Other (anxious appearing, ill)
Assessment
-
Patient is a 38-year-old male with previous history of peripheral neuropathy, back pain, recently treated for Lyme's disease presenting to ER for syncope. He was recently hospitalized at [facility] for diffuse myalgias, arthralgias and fever. He was
diagnosed with Lyme disease and placed on doxycycline. He was then readmitted for severe sepsis treated with IV antibiotics including linezolid and ceftriaxone. Upon discharge she had ongoing fevers, joint pain for which she was taking Aleve twice
a day. He then developed significant generalized weakness and fatigue with new syncope. Reportedly syncopized 3 times at home. Upon arrival to ER, there was notably a large bloody bowel movement and hematemesis. Hemoglobin initially 9.7 which
then decreased to 4.1. He is transfused PRBCs and admitted to ICU for acute GI bleed, suspected upper.
Acute UGIB with hematemesis and hematochezia
Acute blood loss anemia
Recent NSAID use
Generalized weakness/fatigue
Syncopal episode
Myalgias/arthralgias
Recent Lyme's disease/sepsis
Fever
Tachycardia
Lactic acidosis
Hyperglycemia
Metabolic acidosis
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
Anxiety, severe with panic attacks
Hypertension
Depression
Dorsalgia/neuralgia, sciatica R side
Obesity, BMI 31
Former smoker
Plan
No current signs of metabolic encephalopathy or MS changes/following commands
Denies pain at this time.
Pain/sedation: PRN
RASS goals: 0
Hemodynamically stable, not requiring pressors.
Cardiac history reviewed--HTN
No prior ECHO for review
Hold home meds until stable
Monitor on telemetry
Oxygen needs: on RA
Prior history of lung disease: none but was a former smoker
Supplemental O2 as indicated to maintain sats > 89%
No chest imaging, CTA pending
UGIB likely from NSAID use, GI consult
PPI gtt
NPO, for EGD today
Aspiration precautions, HOB > 30 degrees
Creat at baseline, no history of renal disease
Void trials
Follow urine output, critical I/Os
Replete electrolytes as needed
Fever and increased WBC on presentation, with recent Lyme dx
Unclear if this is recurrence, can consider ID eval
No fever since admission
Blood cultures are sent
Follow fever trend, WBC count
Lactate elevated on admission, continue to trend until <2
Bleeding noted, acute blood loss from 9 to 4
Repeat serial H&H
DVT prophylaxis as assessed based on risk, including mechanical SCDs
Can transfuse if indicated for Hb <7, plt < 10
Transfusions: 2 units thus far
INR WNL
No prior h/o diabetes or thyroid disease
Monitor accuchecks PRN/SS coverage if needed
We will follow
Diagnostic Data
Chest X-Ray:
CT Scan: AP 04/16/24- No CT evidence for an acute inflammatory process of the abdomen or pelvis.
Echo:
PFT's:
Reports and relevant images were personally reviewed.
-----
Critical care time 65 mins -- this includes review of history, physical exam, medications, hemodynamic/ventilator parameters, laboratory data, imaging and discussion with house staff, pharmacy, respiratory therapy, monotype machinist, and nursing.
[2024-04-16 08:32] LABS: Percent Saturation 44 % (20-50); Total Iron Binding Capacity 229 ug/dl (261-462)
--- NOTE | 2024-04-16 08:34 | PTCARENOTE ---
08:03 Admitted from ER with DX GI bleed . VS 98( oral ) BP via RT upper arm 124/70 MAP 88; ST 105 -111; RR 20 98% RA. Peripheral lines left hand and Left AC both # 20; NSS at 250 /hr and Protonix 80mg /100Ml NSS at 10ml or 8mcg via left hand. 2
PRBC ordered in EF. 1st completed in ER. 2nd unit will be started in ICU. Pt's mom at the bedside
[2024-04-16 09:06] LABS: Hematocrit 21.9 % (39.0-52.0); Hemoglobin 7.4 g/dL (13.0-18.0)
--- NOTE | 2024-04-16 09:16 | PTCARENOTE ---
09:16 2nd unit out of 2 started infusing via left ac
--- NOTE | 2024-04-16 09:28 | W.PN.UPDATE ---
Update Note
Progress Note Update
Admitted few hours ago to ICU for acute GI bleed and severe anemia.
Patient is sleeping but arousable. He says he did not get any sleep since admission. No nausea or vomiting but he does have abdominal pain. Since coming to ICU no bleeding episodes without hematemesis or bowel movement.
Denies any shortness of breath. No chest pain.
Afebrile and blood pressure stable. Tachycardia.
Chest clear
Heart sinus versus her.
Abdomen soft and nondistended bowel sounds present but tender in all lower quadrant especially in epigastric area.
Repeat H&H after transfusion is up at 7.4. Creatinine normal. Lactic acid improved from 3.4-2.3. LFTs are normal.
CT of the abdomen pelvis noted without any acute abnormalities. CT abdomen pelvis angiogram report pending.
Continue with transfusion support and IV PPI for acute GI bleed and acute blood loss anemia. Follow H&H with transfusion closely.
Aim to keep H&H more than 7.0.
Check lipase.
Await GI input.
DW mom at bedside.
[2024-04-16 10:09] LABS: Lipase 79 U/L (23-300)
[2024-04-16 11:14] LABS: Vitamin B12 406 pg/ml (239-931)
[2024-04-16] MEDS: PROTONIX IV 80 MG IV (11:20)
[2024-04-16] MEDS: NSS (PRESERVATIVE FREE) 20 ML IV (11:20)
[2024-04-16] MEDS: REGLAN 10 MG IV (11:21)
[2024-04-16] MEDS: PROTONIX IV (11:24)
[2024-04-16] MEDS: DILAUDID 0.5 MG IV ×4 (11:46→23:45)
--- NOTE | 2024-04-16 12:22 | PTCARENOTE ---
2nd unit completed earlier. Patient taking to GI lab via bed for EGD. VSS. Protonix infusing
--- NOTE | 2024-04-16 13:11 | PTCARENOTE ---
Returned from GI lab. VSS. pt will be on clear liquid. CBC will be send
[2024-04-16 13:42] LABS: Lactic Acid 1.7 mmol/L (0.7-2.0)
[2024-04-16 13:44] LABS: Hematocrit 23.6 % (39.0-52.0); Hemoglobin 8.1 g/dL (13.0-18.0); Mean Corp Hgb Conc. 34.3 g/dL (33.0-37.0); Mean Corpuscular Hgb 27.6 pg (27.0-31.0); Mean Corpuscular Volume 80.3 fL (80.0-94.0); Mean Platelet Volume 11.2 fL (7.4-10.4); Platelet Count 162 10^3/uL (130-400); Red Blood Cell Count 2.94 10^6/uL (4.70-6.10); Red Cell Dist. Width 14.7 % (11.5-14.5); White Blood Cell Count 11.2 10^3/uL (4.8-10.8)
--- NOTE | 2024-04-16 14:13 | CM ---
CM following re: discharge planning.
Reviewed pt's chart, met with pt.
Pt is a 38 year old male, admitted with primary dx of Anemia.
Pt reports he lives with spouse and a daughter in a 2SH, 1 steps to enter, has 4 supportive children. Pt reports he ambulates with a cane at baseline.
PCP: FADUMO Townsend
Pharmacy: [facility].
D/c plan: home with anticipated no needs. Spouse to transport at discharge.
CM will follow with discharge plan updates as hospitalization progresses
[2024-04-16] MEDS: NSS IV ×2 (16:51→21:02)
--- NOTE | 2024-04-16 19:12 | PTCARENOTE ---
in bed AAO x3 Whole body pain at joints 8 out of 10 pain scale level. Relieved with Dilaudid prn order. After patient returned form GI lab , had one Bowel movement, Burgundy color, large loose. Form 7am to 7pm shift today patient had three BM total
. VSS . Clear liquid diet tolerating without abdominal pain. No nausea/ vomiting.
[2024-04-16 19:46] LABS: Hematocrit 21.3 % (39.0-52.0); Hemoglobin 7.4 g/dL (13.0-18.0)
--- NOTE | 2024-04-16 20:00 | PTCARENOTE ---
Received pt resting in bed, AAOx3. C/O of being tired and generalized aches/pains throughout body- discussed pain medication regimen and pt wishes to wait until next PRN dilaudid dose is due. SR/ST on tele, HR 90-100s. BP 130s/80s. + pulses, no
edema, afebrile. On RA, lungs CTA. Hyperactive bowel sounds. No BM since earlier in the day. No complaints of nausea/vomiting. Using urinal independently. Protonix gtt infusing per SEP. H&H repeated- hgb 7.4. Discussed with MARKETING PROGRAM MANAGER- will monitor for
now. Call redd in reach
[2024-04-17] VITALS (33 sets, daily range): BP systolic 122–152; BP diastolic 72–94; BMI 31.3
--- NOTE | 2024-04-17 | PTCARENOTE ---
Pt reassessed. Resting on and off. No stools or N/V. Vitals stable
[2024-04-17 01:29] LABS: Hematocrit 22.3 % (39.0-52.0); Hemoglobin 7.7 g/dL (13.0-18.0)
[2024-04-17] MEDS: DILAUDID 0.5 MG IV ×6 (01:40→22:40)
[2024-04-17] MEDS: PROTONIX 100 IV ×3 (02:57→21:49)
--- NOTE | 2024-04-17 04:01 | PTCARENOTE ---
Had moderate amount liquid burgundy stool around 0100. H&H repeated at 0121- results noted and discussed with FADUMO. Pt. required breakthrough dose of dilaudid. Pain improved now per pt. and he is resting. No other changes
[2024-04-17 06:26] LABS: Mean Corp Hgb Conc. 34.5 g/dL (33.0-37.0); Mean Corpuscular Hgb 27.9 pg (27.0-31.0); Mean Corpuscular Volume 80.9 fL (80.0-94.0); Mean Platelet Volume 11.8 fL (7.4-10.4); Platelet Count 134 10^3/uL (130-400); Red Blood Cell Count 2.51 10^6/uL (4.70-6.10); Red Cell Dist. Width 15.3 % (11.5-14.5); White Blood Cell Count 7.1 10^3/uL (4.8-10.8)
[2024-04-17 06:29] LABS: Hematocrit 20.3 % (39.0-52.0)
[2024-04-17 06:35] LABS: Blood Urea Nitrogen 15 mg/dl (9-20); Calcium 8.3 mg/dl (8.4-10.2); Carbon Dioxide 24 mmol/L (22-30); Chloride 107 mmol/L (98-107); Estimated Creatinine Clearance > 125 ml/min; Glucose 97 mg/dl (70-99); Potassium 4.3 mmol/L (3.5-5.1); Sodium 137 mmol/L (135-145); eGFR > 60.00
--- NOTE | 2024-04-17 07:23 | PTCARENOTE ---
0700 patient see in bed. VS 98.0(oral ) BP via RT Upper arm 138/89 MAP 95. SR 86; c/o of weakness and dizziness while in bed with HOB elevated about 30 degrees. On going c/o of whole body joint pain and abdominal pain left side ' under ribs' . Per
change of shift report 7pm to 7am pt had 2 BM, large, loose , Burgundy color; Protonix 8mg/hr infusing via left FA. AAO x3. Abdomen tender, Hyperactive Bowel sound through. Voiding in a urinal . No edema. Lungs clear on RA . PRBC 1 units will be
given. call redd within reach
--- NOTE | 2024-04-17 07:35 | W.PN.INTV ---
Today's Communication / Plan
Recommendations
PPI continued, still with anemia/bloody BMs, transfuse as indicated
Diet advanced to clears
Change pain regiment to PO
Encouraged OOB/PT/OT eventually
Observation another 24 hours
Assessment
-
Patient is a 38-year-old male with previous history of peripheral neuropathy, back pain, recently treated for Lyme's disease presenting to ER for syncope. He was recently hospitalized at [facility] for diffuse myalgias, arthralgias and fever. He was
diagnosed with Lyme disease and placed on doxycycline. He was then readmitted for severe sepsis treated with IV antibiotics including linezolid and ceftriaxone. Upon discharge she had ongoing fevers, joint pain for which she was taking Aleve twice
a day. He then developed significant generalized weakness and fatigue with new syncope. Reportedly syncopized 3 times at home. Upon arrival to ER, there was notably a large bloody bowel movement and hematemesis. Hemoglobin initially 9.7 which
then decreased to 4.1. He is transfused PRBCs and admitted to ICU for acute GI bleed, suspected upper.
Acute UGIB with hematemesis and hematochezia s/p EGD with duodenal ulcer 04/16/24
Acute blood loss anemia
Recent NSAID use
Generalized weakness/fatigue
Syncopal episode
Myalgias/arthralgias
Recent Lyme's disease/sepsis
Fever
Tachycardia
Lactic acidosis
Hyperglycemia
Metabolic acidosis
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
Anxiety, severe with panic attacks
Hypertension
Depression
Dorsalgia/neuralgia, sciatica R side
Obesity, BMI 31
Former smoker
Plan
No current signs of metabolic encephalopathy or MS changes/following commands
Diffuse myalgias/arthralgias, ongoing
Pain/sedation: PRN Dilaudid, change to PO regiment
RASS goals: 0
Hemodynamically stable, not requiring pressors.
Cardiac history reviewed--HTN
No prior ECHO for review
Hold home meds until stable
Monitor on telemetry
Oxygen needs: on RA
Prior history of lung disease: none but was a former smoker
Supplemental O2 as indicated to maintain sats > 89%
No chest imaging, CT AP negative
UGIB likely from NSAID use, GI consult
PPI continued
EGD reviewed, with duodenal ulcer
Diet advanced to clears today
Aspiration precautions, HOB > 30 degrees
Creat at baseline, no history of renal disease
Void trials
Follow urine output, critical I/Os
Replete electrolytes as needed
Fever and increased WBC on presentation, with recent Lyme dx
Unclear if this is recurrence, can consider ID eval
No fever since admission
Blood cultures are sent
Follow fever trend, WBC count
Lactate elevated on admission, continue to trend until <2
Bleeding noted, acute blood loss from 9 to 4
Repeat serial H&H
DVT prophylaxis as assessed based on risk, including mechanical SCDs
Can transfuse if indicated for Hb <7, plt < 10
Transfusions: 2 units thus far
INR WNL
No prior h/o diabetes or thyroid disease
Monitor accuchecks PRN/SS coverage if needed
Diagnostic Data
Chest X-Ray:
CT Scan: AP 04/16/24- No CT evidence for an acute inflammatory process of the abdomen or pelvis.
Echo:
PFT's:
Reports and relevant images were personally reviewed.
-----
Critical care time 35 mins -- this includes review of history, physical exam, medications, hemodynamic/ventilator parameters, laboratory data, imaging and discussion with house staff, pharmacy, respiratory therapy, wire winding machine operator, and nursing.
Subjective Dataa
Subjective Data
Date of Service:
Date of Service: April 17, 2024
Chief Complaint: Health Care Facilities Inspector Follow Up
Subjective:
Had 2 bloody BMs overnight, Hb drop to 7
Otherwise, remains stable
No new complaints
Diffuse joint pain ongoing, better with dilaudid
Objective Data
Data Reviewed
Vital Signs / I&O / Oxygen:
Vital Signs
Temp Pulse Resp BP Pulse Ox
98.0 F 82 16 138/81 95
04/17/24 07:29 04/17/24 07:29 04/17/24 07:29 04/17/24 07:29 04/17/24 06:00
Intake and Output
04/16/24 04/17/24 04/18/24
06:59 06:59 06:59
Intake Total 0 / 0 1410 / 1410
Output Total 1700 / 1700
Balance 0 / 0 -290 / -290
SaO2 95
Physical Exam
General: Comfortable and Other (NAD)
HEENT: Normocephalic, Anicteric and Moist Mucous Membranes
Cardiovascular: S1-S2 and Regular Rhythm
Respiratory: Clear and Non-Labored Respirations
GI: Soft, Non Distended and Tender
Neurology: Awake, Alert, Oriented and No Motor Deficits
Skin: Warm, Dry and Good Color
Labs/Micro/Reports
Lab Data
04/17/24 05:49
04/17/24 05:49
Laboratory Results
04/17/24
05:49
APTT 24.0
Microbiology
04/16/24 03:01 Blood/Venous Blood Culture - Preliminary
No Growth in 24 hours- Final report to follow
04/16/24 03:01 Blood/Venous Blood Culture - Preliminary
No Growth in 24 hours- Final report to follow
--- NOTE | 2024-04-17 07:41 | PTCARENOTE ---
1 unit of PRBC at 07:37
--- NOTE | 2024-04-17 09:10 | W.PN.GI.CBS2 ---
Today's Communication / Plan
-
-- Clears plus Ensure
-- Check CBC 1 PM
Assessment / Plan
-
The pt is 38 yo male with a PMH significant for Lyme's disease recently diagnosed who presented to the ER with complaints of weakness, fatigue, and syncope at home, found to have findings concerning for significant GI bleed with a drop of
hemoglobin from 9.7-4.1. He had a prolonged hospitalization at [facility] for workup of fatigue and fevers found to have findings consistent with Lyme disease treated with antibiotics and antivirals, for follow-up with infectious disease
outpatient. He is continue with symptoms and had syncope at home x 2-3 episodes prompting evaluation in the emergency room. He had nausea with vomiting of coffee-ground emesis that was heme positive along with a large volume dark red passage of
blood from his rectum. He underwent CT of the abdomen and pelvis initially prior to the bleeding which was unrevealing per ER documentation. CTA is pending. He is overall hemodynamically stable with urgent blood transfusion pending. He was
placed on a PPI drip. He had been taking Aleve twice a day for the past week. Other pertinent findings include BUN 41, INR 1.64, lactic acid 3.4, platelets 127,000, with normal LFTs. He has no history of liver disease or alcohol use.
Problem list:
-Syncope
-GI bleed, with coffee-ground emesis and large volume burgundy stool with recent use of NSAIDs, course of antibiotics with elevated BUN 41
-Recent diagnosis of Lyme's disease
-Fatigue, fevers, weakness, likely secondary to Lyme's disease
-Lactic acidosis
-Mild thrombocytopenia
-Elevated INR
Recommendations:
04/16/2024 -underwent urgent EGD with no blood throughout the upper GI tract but he did have significant esophagitis and roughly 3 superficial ulcers with no stigmata in the second portion -no endoscopic treatment but biopsied for H. pylori.
Etiology likely NSAID induced
-- Received 2 units of blood
04/17/2024 -hemodynamically stable, ordered 1 unit of blood this morning
-- Stool some black this morning hopefully hold blood
-- My inclination is that he may have ulcers further down the small bowel
-- If bleeding persists, nuclear medicine bleeding scan
-- Continue PPI drip
--Clears plus Ensure
Subjective
Subjective
Date of Service: April 17, 2024
Patient had another burgundy stool last night and a black stool this morning, a lot of gurgling in his stomach. Continued tenderness in the abdomen
Objective
Data Reviewed
Laboratory Data:
Laboratory Results
04/17/24 05:49
04/17/24 05:49
Laboratory Results
PT 19.3 Sec (11.4-14.6) H 04/16/24 05:34
INR 1.64 04/16/24 05:34
APTT 24.0 Sec (23.4-35.0) 04/17/24 05:49
Total Bilirubin 0.4 mg/dl (0.2-1.3) 04/16/24 01:53
AST 21 U/L (17-59) 04/16/24 01:53
ALT 23 U/L (0-50) 04/16/24 01:53
Alkaline Phosphatase 71 U/L (38-126) 04/16/24 01:53
Lipase 79 U/L (23-300) 04/16/24 01:53
Vital Signs and I&O:
Vital Signs
Temp Pulse Resp BP Pulse Ox
98.0 F 92 16 125/78 96
04/17/24 07:52 04/17/24 08:00 04/17/24 08:00 04/17/24 08:00 04/17/24 08:00
I&O
04/16/24 04/17/24 04/18/24
06:59 06:59 06:59
Intake Total 0 / 0 1410 / 1410 320 / 320
Output Total 1700 / 1700
Balance 0 / 0 -290 / -290 320 / 320
Physical Exam
Physical Exam
HEENT: Anicteric
Cardiology: Normal Sinus Rhythm
Pulmonary: Clear
GI: Soft and Tender
Extremities: No Edema
Neuro: Non Focal
[2024-04-17 12:51] LABS: Hemoglobin 8.2 g/dL (13.0-18.0)
--- NOTE | 2024-04-17 13:12 | PTCARENOTE ---
Hgb 8.2 after 1unit PRBC (Total of 3 units this admission ) . No BM since since 7am . Denies Nausea No vomiting. Hyperactive Bowel sound through. Dr Stubbs notified . Clear liquid diet will be advanced
--- NOTE | 2024-04-17 13:37 | PTCARENOTE ---
patient continue to complain of myalgias and arthralgias 8 put of 10 pain scale level . offered Oxycodone per PRN order, however patient states that he prefers to take Dilaudid instead of Oxycodone. Reports of taking Oxycodone during recent
admissions to hospital and Oxycodone causing itching with no rash. Patient educated on Dilaudid as a potent opioid medication, explained risk of dependence, tolerance, potential side effects such as drowsiness, constipation... . Patient encouraged
to explore alternative, less potent medication for pain management e.g., Tylenol . patient aware of need to avoid NSAIDs
--- NOTE | 2024-04-17 15:18 | PTCARENOTE ---
pt on clear liquid diet . No nausea no voming. one BM burgundy color , large loose . + Abdominal cramping . left wrist cephalic #20 Protonix infusing during routine check swelling noted painful . periperal line removed 2x2 applied warm compress
applied
--- NOTE | 2024-04-17 15:50 | W.PN.HOSP.TC ---
Today's Communication/Plan
-
Transfuse PRBC.
Continue follow H&H.
Continue with IV PPI.
Continue with clear liquids.
Assessment / Plan
Assessment / Plan
A/P: Patient is a 38y M with PMH significant for prior lumbar fusion who presents to ED complaining of multiple syncopal episodes in the past 24 hours.
GI Bleed - Likely Upper
Acute Blood Loss Anemia secondary to the above
Hypovolemic Shock secondary to the above
Lactic Acidosis secondary to the above
EGD 04/16 showed- Nonbleeding duodenal ulcers with a clean ulcer base in second portion,LA grade C esophagitis without bleeding
Continue transfusion support-1 more unit for this morning ordered. Follow H&H closely.
Continue PPI.
Continue with clear liquids.
GI following.
Patient hemodynamically stable.
Recent Sepsis Hospitalization
Lyme Disease
- Patient is currently afebrile and initial leukocytosis was likely inaccurate. Repeat WBC normalized.
- No specific evidence of acute / recurrent infectious process at present.
- Initial CT A/P was unremarkable.
- Observe off of additional abx for now.
- Follow temperature curve, any culture data, etc.
- Send for records from [facility] for review.
Lumbar DDD
- Stable. No acute back pain or similar issues.
- s/p lumbar fusion done 12 years ago.
DVT Prophylaxis: SCDs
Code Status: Full
Discussed with RN this morning.
Total time spent on today's encounter was 52 minutes which included time spent in counseling the patient/family regarding diagnosis and treatment plan as listed above, goals of care, and symptom management. Case was discussed with nursing staff,
specialists. All labs and imaging personally reviewed by me. Remainder the time spent in detailed review of previous records, lab data, imaging, and other medical provider documentation.
Anticipated Discharge: > 48 hours
Subjective/Interval History
-
Date of Service: April 17, 2024
Seen earlier in the morning. This is a late note.
Patient is complaining of lightheadedness and dizziness in the morning. He was getting his third unit of PRBC transfusion.
Was also complaining of some abdominal discomfort. No nausea or vomiting with clear liquids.
He had 2 bowel movements which were bloody.
Objective Data
-
Labs:
Laboratory Results
04/17/24 04/17/24
05:49 12:34
WBC 7.1
Hgb 7.0 L 8.2 L
Hct 20.3 L*
Plt Count 134
APTT 24.0
Sodium 137
Potassium 4.3
Chloride 107
Carbon Dioxide 24
BUN 15
Creatinine 0.7
Glucose 97
Calcium 8.3 L
Vital Signs:
Vital Signs
Temp Pulse Resp BP Pulse Ox
98.0 F 86 16 144/90 100
04/17/24 15:00 04/17/24 13:00 04/17/24 13:00 04/17/24 13:00 04/17/24 13:00
I&O
04/16/24 04/17/24 04/18/24
06:59 06:59 06:59
Intake Total 0 / 0 1410 / 1410 1360 / 1360
Output Total 1700 / 1700 800 / 800
Balance 0 / 0 -290 / -290 560 / 560
Review of Systems
-
Constitutional: Denies Fever
Respiratory: Denies Trouble Breathing
Cardiac: Denies Chest Pain
Physical Exam
-
General: Comfortable
Respiratory: Non Labored Respirations; Negative Accessory Resp Muscle Use
Cardiac: Regular Rhythm and S1/S2; Negative Tachycardic
GI: Soft, Nondistended, Normal Bowel Sounds and Tender (Mostly in epigastric area)
Neuro: AO x 3
Data Reviewed
-
Labs: Labs Reviewed by me
--- NOTE | 2024-04-17 18:29 | PTCARENOTE ---
From 7am to 7pm shift x2 BM large loose Burgundy color. No N/V Hyperactive BS. H/H scheduled will be collected
[2024-04-17 19:30] LABS: Hematocrit 27.6 % (39.0-52.0); Hemoglobin 9.7 g/dL (13.0-18.0)
--- NOTE | 2024-04-17 19:30 | PTCARENOTE ---
received report from day RN, AAOx3, NSR +radials and pedals, lungs clear on RA SAT's 95%, belly round soft tender to touch, hyperactive BSx4, pt using urinal due to void, IV team called to place new IV, 1950 pt diaphoretic, crying and c/o / abd
pain, PIANO CASE MAKER notified, 0.5mg Dilaudid administered, new right IV placed removed pt reporting to painful when flushing, IV team called again and new IV placed on LFA, H&H sent awaiting results, Protonix gtt 10ml/hr LAC, call redd within reach, pt able to
make needs known, otherwise refer to documentation
--- NOTE | 2024-04-17 19:30 | PTCARENOTE ---
Received report from mp RN, pt AAOx3,
[2024-04-17] MEDS: CARAFATE 1 GRAM PO (19:48)
[2024-04-18] VITALS (29 sets, daily range): BP systolic 124–166; BP diastolic 81–105; BMI 31.2
--- NOTE | 2024-04-18 00:17 | PTCARENOTE ---
systems reviewed, pts pain controlled with ordered prn Dilaudid refer to MAR, no changes to previous assessment, otherwise refer to documentation
[2024-04-18] MEDS: DILAUDID 0.5 MG IV ×6 (01:57→23:20)
--- NOTE | 2024-04-18 04:00 | PTCARENOTE ---
systems reviewed, no changes from beginning assessment, pt rating abd pain 7-02/19, treated per SEP, otherwise refer to documentation.
0600: labs drawn, hgb 7.6, CORPORATE LAWYER notified
[2024-04-18 05:39] LABS: Hematocrit 22.1 % (39.0-52.0); Hemoglobin 7.6 g/dL (13.0-18.0); Mean Corp Hgb Conc. 34.5 g/dL (33.0-37.0); Mean Corpuscular Hgb 28.4 pg (27.0-31.0); Mean Corpuscular Volume 82.1 fL (80.0-94.0); Mean Platelet Volume 10.6 fL (7.4-10.4); Platelet Count 119 10^3/uL (130-400); Red Blood Cell Count 2.68 10^6/uL (4.70-6.10); Red Cell Dist. Width 14.6 % (11.5-14.5); White Blood Cell Count 6.4 10^3/uL (4.8-10.8)
[2024-04-18 05:57] LABS: ALT (SGPT) 17 U/L (0-50); AST (SGOT) 17 U/L (17-59); Albumin 2.9 g/dl (3.5-5.0); Alkaline Phosphatase 54 U/L (38-126); Blood Urea Nitrogen 8 mg/dl (9-20); Calcium 8.4 mg/dl (8.4-10.2); Carbon Dioxide 28 mmol/L (22-30); Chloride 103 mmol/L (98-107); Estimated Creatinine Clearance > 125 ml/min; Glucose 91 mg/dl (70-99); Potassium 3.6 mmol/L (3.5-5.1); Sodium 139 mmol/L (135-145); Total Bilirubin 0.4 mg/dl (0.2-1.3); Total Protein 5.1 g/dl (6.3-8.2); eGFR > 60.00
[2024-04-18] MEDS: PROTONIX 100 IV ×2 (06:53→17:04)
--- NOTE | 2024-04-18 09:07 | W.PN.GI.CBS2 ---
Addendum entered and electronically signed by Negra Stubbs DO 04/18/24 10:43:
Patient seen and examined independently of RATING CLERK. I agree with her note with my additions below
Despite stable vital signs patient continues to have burgundy output from below with borborygmi and abdominal pain. His hemoglobins are unreliable. I have asked nursing to stop taking them from the IV site. He has had 3 units of blood thus far
and I have ordered another this morning. His last episode of rectal bleeding was around 7 AM.
If and when he rebleeds he will go to nuclear medicine for scanning
1 unit of blood this morning
His EGD had no blood up to the third portion of the duodenum. He did have 3 cratered ulcers but they had no stigmata and no blood around them. I was hopeful they were the source but considering he continues to bleed he likely has more ulcerations
further in his small bowel and likely from NSAID use.
Unlikely colon bleeding but if this continues and we cannot find a source on nuclear medicine scan we will prep him for colonoscopy for tomorrow
Continue ICU level care, clear liquids for now
Original Note:
Today's Communication / Plan
-
04/16/2024 -underwent urgent EGD with no blood throughout the upper GI tract but he did have significant esophagitis and roughly 3 superficial ulcers with no stigmata in the second portion -no endoscopic treatment but biopsied for H. pylori.
Etiology likely NSAID induced
concern for bleeding further down in GI tract then where EGD completed to
total 3 unit given since admission for 4th unit today
hbg still some downward trend and 3 large volume stools overnight with last stool 1-2 hours ago
will plan for nuclear med scan today
if + consider proceed for IR intervention
cont NPO
PPI gtt
repeat INR in AM with recent elevation to see if any role for FFP if continued bleeding
close follow
Assessment / Plan
-
The pt is 38 yo male with a PMH significant for Lyme's disease recently diagnosed who presented to the ER with complaints of weakness, fatigue, and syncope at home, found to have findings concerning for significant GI bleed with a drop of
hemoglobin from 9.7-4.1 after admission then improved. He had a prolonged hospitalization at [facility] for workup of fatigue and fevers found to have findings consistent with Lyme disease treated with antibiotics and antivirals, for
follow-up with infectious disease outpatient. He is continue with symptoms and had syncope at home x 2-3 episodes prompting evaluation in the emergency room. He had nausea with vomiting of coffee-ground emesis that was heme positive along with a
large volume dark red passage of blood from his rectum. 04/[address] with IV contrast with no inflammatory process then CTA 04/16 with probable blood in lumen right colon and distal SB no active bleed. He had been taking Aleve twice a day for
the past week prior to admission. No hx liver issues and normal liver on IV contrast Ct on admission.
Problem list:
-Syncope
-GI bleed, with coffee-ground emesis and large volume burgundy stool with recent use of NSAIDs, course of antibiotics with elevated BUN on admission
-EGD with esophagitis /3 ulcers
-Recent diagnosis of Lyme's disease
-Fatigue, fevers, weakness, likely secondary to Lyme's disease
-Lactic acidosis
-Mild thrombocytopenia
-Elevated INR
-umbilical hernia
-gallstones
Laboratory Tests
04/17/24 04/17/24 04/17/24
01:21 05:49 12:34
Hgb 7.7 L 7.0 L 8.2 L
04/17/24 04/18/24
19:23 05:10
Hgb 9.7 L 7.6 L D
Recommendations:
04/16/2024 -underwent urgent EGD with no blood throughout the upper GI tract but he did have significant esophagitis and roughly 3 superficial ulcers with no stigmata in the second portion -no endoscopic treatment but biopsied for H. pylori.
Etiology likely NSAID induced
concern for bleeding further down in GI tract then where EGD completed to
total 3 unit given since admission for 4th unit today
hbg still some downward trend and 3 large volume stools overnight with last stool 1-2 hours ago
will plan for nuclear med scan today
if + consider proceed for IR intervention
cont NPO
PPI gtt
repeat INR in AM with recent elevation to see if any role for FFP if continued bleeding
close follow
Subjective
Subjective
Date of Service: April 18, 2024
still with several episodes of bleeding overnight
Objective
Data Reviewed
Laboratory Data:
Laboratory Results
04/18/24 05:10
Laboratory Results
PT 19.3 Sec (11.4-14.6) H 04/16/24 05:34
INR 1.64 04/16/24 05:34
APTT 24.0 Sec (23.4-35.0) 04/17/24 05:49
Total Bilirubin 0.4 mg/dl (0.2-1.3) 04/18/24 05:10
AST 17 U/L (17-59) 04/18/24 05:10
ALT 17 U/L (0-50) 04/18/24 05:10
Alkaline Phosphatase 54 U/L (38-126) 04/18/24 05:10
Lipase 79 U/L (23-300) 04/16/24 01:53
Vital Signs and I&O:
Vital Signs
Temp Pulse Resp BP Pulse Ox
98.1 F 73 14 133/82 95
04/18/24 08:00 04/18/24 06:30 04/18/24 06:30 04/18/24 06:00 04/18/24 06:30
I&O
04/17/24 04/18/24 04/19/24
06:59 06:59 06:59
Intake Total 1410 / 1410 1480 / 1490 30 / 30
Output Total 1700 / 1700 1200 / 1700 500 / 500
Balance -290 / -290 280 / -210 -470 / -470
Physical Exam
Physical Exam
HEENT: Anicteric and Moist mucous membranes
Cardiology: Other (some noted tachycardia during exam 90-110)
Pulmonary: Clear
GI: Soft, Non Distended and Tender (diffuse pain )
Extremities: No Edema
Neuro: Non Focal
--- NOTE | 2024-04-18 09:40 | W.PN.HOSP.TC ---
Today's Communication/Plan
-
For nuclear scan today
Assessment / Plan
Assessment / Plan
A/P: Patient is a 38y M with PMH significant for prior lumbar fusion who presents to ED complaining of multiple syncopal episodes in the past 24 hours.
GI Bleed - Likely Upper
Acute Blood Loss Anemia secondary to the above
Hypovolemic Shock secondary to the above
Lactic Acidosis secondary to the above
EGD 04/16 showed- Nonbleeding duodenal ulcers with a clean ulcer base in second portion,LA grade C esophagitis without bleeding
Appreciate GI input, for nuclear scan today
Patient getting his fourth unit of blood today
Continue Protonix drip, trend hemoglobin
Patient hemodynamically stable.
Recent Sepsis Hospitalization
Lyme Disease
- Patient is currently afebrile and initial leukocytosis was likely inaccurate. Repeat WBC normalized.
- No specific evidence of acute / recurrent infectious process at present.
- Initial CT A/P was unremarkable.
- Observe off of additional abx for now.
- Follow temperature curve, any culture data, etc.
Lumbar DDD
- Stable. No acute back pain or similar issues.
- s/p lumbar fusion done 12 years ago.
DVT Prophylaxis: SCDs secondary to GI bleed
Code Status: Full
Total time spent to see the patient on the floor, examine the patient, review data and lab results, discuss treatment plan with patient, nursing staff around 38 minutes.
Physical Exam
General: No acute distress
HEENT: Normocephalic, Atraumatic, EOMI, MMM
Respiratory: Clear to Auscultation bilaterally
Cardiac: Normal S1/S2, Regular Rate and Rhythm
GI: Soft, Nontender, Nondistended, Normal Bowel Sounds
Extremities: No Clubbing, Cyanosis, or Edema
Neuro: Nonfocal/Grossly Intact
Psych: Calm, Cooperative
Derm: No Visible lesions
Anticipated Discharge: > 48 hours
Subjective/Interval History
-
Date of Service: April 18, 2024
Patient continues to have maroon stools. He feels weak and lightheaded. Also has abdominal pain. No fever, no vomiting.
Objective Data
-
Labs:
Laboratory Results
04/18/24 04/18/24 04/18/24
05:10 12:00 18:00
WBC 6.4
Hgb 7.6 L D Pending Pending
Hct 22.1 L Pending Pending
Plt Count 119 L
Sodium 139
Potassium 3.6
Chloride 103
Carbon Dioxide 28
BUN 8 L
Creatinine 0.7
Glucose 91
Calcium 8.4
Total Bilirubin 0.4
AST 17
ALT 17
Alkaline Phosphatase 54
Vital Signs:
Vital Signs
Temp Pulse Resp BP Pulse Ox
98.1 F 73 14 133/82 95
04/18/24 08:00 04/18/24 06:30 04/18/24 06:30 04/18/24 06:00 04/18/24 06:30
I&O
04/17/24 04/18/24 04/19/24
06:59 06:59 06:59
Intake Total 1410 / 1410 1480 / 1490 30 / 30
Output Total 1700 / 1700 1200 / 1700 500 / 500
Balance -290 / -290 280 / -210 -470 / -470
[2024-04-18] MEDS: ZOFRAN 4 MG IV (10:42)
[2024-04-18] MEDS: TYLENOL 650 MG PO (10:43)
--- NOTE | 2024-04-18 10:50 | PTCARENOTE ---
Pt received from telephone lines repairer RN. Pt is Ox3, drowsy and complains of generalized weakness. NSR with a rate in the 80's, + pulses, no edema. Breath sounds are clear. ABD most tender in the RLQ and LUQ, hyperactive bowel sounds. Pt had a small burgundy
stool this AM. Pt using urinal appropriately. Pt maintaining bedrest due to complaints of profound weakness and low hgb. IV sites intact. 1 unit PRBC's currently infusing through L FA 18G. Protonix gtt infusing through L FA 20G. Pt complains of 7/10
pain in his joints and ABD, requiring frequent doses of dilaudid. Call redd within reach. Family at bedside.
--- NOTE | 2024-04-18 11:20 | W.PN.INTV ---
Today's Communication / Plan
Recommendations
Maintain ICU level of care for now
For bleeding scan
Continue follow H&H will continue to transfuse as necessary
Continue PPI
Possible colonoscopy if there is no source of bleeding with signs of active GI bleed
Continue with pain control
Monitor respiratory status closely
Assessment
-
Patient is a 38-year-old male with previous history of peripheral neuropathy, back pain, recently treated for Lyme's disease presenting to ER for syncope. He was recently hospitalized at [facility] for diffuse myalgias, arthralgias and fever. He was
diagnosed with Lyme disease and placed on doxycycline. He was then readmitted for severe sepsis treated with IV antibiotics including linezolid and ceftriaxone. Upon discharge she had ongoing fevers, joint pain for which she was taking Aleve twice
a day. He then developed significant generalized weakness and fatigue with new syncope. Reportedly syncopized 3 times at home. Upon arrival to ER, there was notably a large bloody bowel movement and hematemesis. Hemoglobin initially 9.7 which
then decreased to 4.1. He is transfused PRBCs and admitted to ICU for acute GI bleed, suspected upper.
Acute UGIB with hematemesis and hematochezia s/p EGD with duodenal ulcer 04/16/24
Acute blood loss anemia
Recent NSAID use
Generalized weakness/fatigue
Syncopal episode
Myalgias/arthralgias
Recent Lyme's disease/sepsis
Fever
Tachycardia
Lactic acidosis
Hyperglycemia
Metabolic acidosis
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
Anxiety, severe with panic attacks
Hypertension
Depression
Dorsalgia/neuralgia, sciatica R side
Obesity, BMI 31
Former smoker
Plan
Overnight vital signs stable, not tachycardic. Slightly hypertensive.
Continues to have burgundy stools, no hematemesis.
UGIB likely from NSAID use, GI consult
PPI continued
EGD reviewed, with duodenal ulcer with no stigmata of blood around them.
Diet advanced to clears today
Aspiration precautions, HOB > 30 degrees
Continues to complain of abdominal pain.
Hemoglobin 7.6 this morning. Has received 3 units of packed red blood cells. Initial hemoglobin was 4.1. Unclear if there is still active bleeding.
GI correspondence reviewed: Nuclear bleeding scan has been ordered.
He will receive 1 addition of of 1 unit of packed red blood cells
Continue to follow H&H
If there is ongoing active bleeding and bleeding scan is negative, considering colonoscopy as well.
-
Hemodynamically stable, not requiring pressors.
Cardiac history reviewed--HTN
Hold home meds until stable
Monitor on telemetry
-
Diffuse myalgias/arthralgias, ongoing
Pain/sedation: PRN Dilaudid, change to PO regiment. Will add Tylenol as well
Continue to follow respiratory status closely with ongoing narcotic
Creat at baseline, no history of renal disease
Void trials
Follow urine output, critical I/Os
Replete electrolytes as needed
History of recent Lyme dx.
Afebrile without leukocytosis 04/18/2024
No fever since admission
Blood cultures are sent
Follow fever trend, WBC count
Lactate elevated on admission, continue to trend until <2
DVT prophylaxis as assessed based on risk, including mechanical SCDs
Can transfuse if indicated for Hb <7, plt < 10
Transfusions: 4 units thus far
INR WNL
No prior h/o diabetes or thyroid disease
Monitor accuchecks PRN/SS coverage if needed
Diagnostic Data
Chest X-Ray:
CT Scan: AP 04/16/24- No CT evidence for an acute inflammatory process of the abdomen or pelvis.
Echo:
PFT's:
Reports and relevant images were personally reviewed.
-----
Critical care time 32 mins -- this includes review of history, physical exam, medications, hemodynamic/ventilator parameters, laboratory data, imaging and discussion with house staff, pharmacy, respiratory therapy, network contract manager, and nursing.
Subjective Dataa
Subjective Data
Date of Service:
Date of Service: April 18, 2024
Chief Complaint: [place] Program Coordinator Follow Up
Subjective:
Continues to complain of abdominal pain and generalized pain
Denies shortness of breath.
Feels tired
Continues to have intermittent bowel bloody movement.
Review of Systems
General: Fever (n)
Cardiopulmonary: Dyspnea (none at rest), Cough (n) and Sputum Production (n)
GI: Abdominal Pain (n) and Nausea (n)
Neuro: Headache (n)
Objective Data
Data Reviewed
Vital Signs / I&O / Oxygen:
Vital Signs
Temp Pulse Resp BP Pulse Ox
98.7 F 72 20 138/86 100
04/18/24 10:36 04/18/24 10:36 04/18/24 10:36 04/18/24 10:36 04/18/24 10:36
Intake and Output
04/17/24 04/18/24 04/19/24
06:59 06:59 06:59
Intake Total 1410 / 1410 1480 / 1490 290 / 290
Output Total 1700 / 1700 1200 / 1700 500 / 500
Balance -290 / -290 280 / -210 -210 / -210
SaO2 100
Physical Exam
General: Comfortable and Other (NAD)
HEENT: Normocephalic, Anicteric and Moist Mucous Membranes
Cardiovascular: S1-S2 and Regular Rhythm
Respiratory: Clear and Non-Labored Respirations
GI: Soft, Non Distended and Tender
Neurology: Awake, Alert, Oriented and No Motor Deficits
Skin: Warm, Dry and Good Color
Labs/Micro/Reports
Lab Data
04/18/24 05:10
Microbiology
04/16/24 03:01 Blood/Venous Blood Culture - Preliminary
No Growth in 48 hours- Final report to follow
04/16/24 03:01 Blood/Venous Blood Culture - Preliminary
No Growth in 48 hours- Final report to follow
--- NOTE | 2024-04-18 12:00 | PTCARENOTE ---
Completed transfusion of PRBCs. Pt had no s/s of transfusion reaction. Pt had a small black liquid BM. GI made aware, will hold off on nuclear med scan for now. Assessment otherwise unchanged.
--- NOTE | 2024-04-18 13:07 | CM ---
CM following re: discharge planning.
Reviewed pt's chart, met with pt. per Rounds meeting, pt remains drowsy, continue supportive care.
Pt lives with spouse and a daughter in a 2SH and pt ambulates with a cane at baseline.
D/c plan: home with anticipated no needs. Spouse to transport at discharge.
CM will follow with discharge plan updates as hospitalization progresses
[2024-04-18 15:41] LABS: Hemoglobin 9.6 g/dL (13.0-18.0)
--- NOTE | 2024-04-18 19:00 | PTCARENOTE ---
report received from previous RN. pt resting in bed, AAOX3, generalized weakness throughout. reports abdominal pain/tenderness throughout abdomen, recently received prn dilaudid for pain. SR on telemetry heart rate 70s. pulses palpable. trace edema.
pt on room air, sat 96%. lung sounds clear. hyperactive bowel sounds. no BM at this time. voiding clear yellow urine in urinal. protonix gtt infusing left forearm. see worklist for full nursing assessment and interventions. pt updated on plan of
care.
[2024-04-18 21:35] LABS: Hematocrit 28.1 % (39.0-52.0); Hemoglobin 9.8 g/dL (13.0-18.0)
[2024-04-19] VITALS (23 sets, daily range): BP systolic 126–149; BP diastolic 78–98; PULSE 77; BMI 30.8
--- NOTE | 2024-04-19 | PTCARENOTE ---
pt sleeping between care. no changes in assessment noted.
[2024-04-19] MEDS: PROTONIX 100 IV ×3 (03:16→23:42)
[2024-04-19 03:44] LABS: Hematocrit 28.5 % (39.0-52.0); Hemoglobin 9.9 g/dL (13.0-18.0); Mean Corp Hgb Conc. 34.7 g/dL (33.0-37.0); Mean Corpuscular Hgb 28.9 pg (27.0-31.0); Mean Corpuscular Volume 83.1 fL (80.0-94.0); Platelet Count 151 10^3/uL (130-400); Red Blood Cell Count 3.43 10^6/uL (4.70-6.10); Red Cell Dist. Width 15.1 % (11.5-14.5); White Blood Cell Count 8.3 10^3/uL (4.8-10.8)
[2024-04-19 03:52] LABS: INR 1.15; PT 14.5 Sec (11.4-14.6)
--- NOTE | 2024-04-19 04:00 | PTCARENOTE ---
pt slept throughout the night. labs drawn and sent. no changes in assessment noted.
[2024-04-19] MEDS: DILAUDID 0.5 MG IV (04:04)
[2024-04-19 04:08] LABS: Blood Urea Nitrogen 6 mg/dl (9-20); Calcium 8.8 mg/dl (8.4-10.2); Carbon Dioxide 28 mmol/L (22-30); Chloride 101 mmol/L (98-107); Estimated Creatinine Clearance > 125 ml/min; Glucose 94 mg/dl (70-99); Potassium 3.5 mmol/L (3.5-5.1); Sodium 139 mmol/L (135-145); eGFR > 60.00
[2024-04-19] MEDS: KCL 20 MEQ PO (06:08)
[2024-04-19] MEDS: TYLENOL 650 MG PO (07:32)
--- NOTE | 2024-04-19 08:58 | W.PN.HOSP.TC ---
Today's Communication/Plan
-
Stable for telemetry
Assessment / Plan
Assessment / Plan
A/P: Patient is a 38y M with PMH significant for prior lumbar fusion who presents to ED complaining of multiple syncopal episodes in the past 24 hours.
GI Bleed - Likely Upper
Acute Blood Loss Anemia secondary to the above
Hypovolemic Shock secondary to the above
Lactic Acidosis secondary to the above
-Appreciate GI input, EGD 04/16 showed- Nonbleeding duodenal ulcers with a clean ulcer base in second portion,LA grade C esophagitis without bleeding
-Hemoglobin now stable status post 4 units of blood
-Hemoglobin 9.9 today, was 9.8 yesterday
-Continue Protonix drip, trend hemoglobin
-Patient hemodynamically stable
SIRS due to a non-infectious source
-Resolved
Lightheadedness
-Likely positional, from laying down in bed
-Continue IV fluids, encourage patient to sit up
Recent Sepsis Hospitalization
Lyme Disease
- Patient is currently afebrile and initial leukocytosis was likely inaccurate. Repeat WBC normalized.
- No specific evidence of acute / recurrent infectious process at present.
- Initial CT A/P was unremarkable.
- Observe off of additional abx for now.
- Follow temperature curve, any culture data, etc.
Lumbar DDD
- Stable. No acute back pain or similar issues.
- s/p lumbar fusion done 12 years ago.
DVT Prophylaxis: SCDs secondary to GI bleed
Code Status: Full
Total time spent to see the patient on the floor, examine the patient, review data and lab results, discuss treatment plan with patient, nursing staff around 41 minutes.
Physical Exam
General: No acute distress
HEENT: Normocephalic, Atraumatic, EOMI, MMM
Respiratory: Clear to Auscultation bilaterally
Cardiac: Normal S1/S2, Regular Rate and Rhythm
GI: Soft, Nontender, Nondistended, Normal Bowel Sounds
Extremities: No Clubbing, Cyanosis, or Edema
Neuro: Nonfocal/Grossly Intact
Psych: Calm, Cooperative
Derm: No Visible lesions
Anticipated Discharge: 24 - 48 hours
Subjective/Interval History
-
Date of Service: April 19, 2024
Last bowel movement was yesterday morning. Bloody stools have resolved. No fever, no vomiting. He does report lightheadedness with sitting.
Objective Data
-
Labs:
Laboratory Results
04/18/24 04/19/24
21:29 03:28
WBC 8.3
Hgb 9.8 L 9.9 L
Hct 28.1 L 28.5 L
Plt Count 151 D
PT 14.5
INR 1.15
Sodium 139
Potassium 3.5
Chloride 101
Carbon Dioxide 28
BUN 6 L
Creatinine 0.8
Glucose 94
Calcium 8.8
Vital Signs:
Vital Signs
Temp Pulse Resp BP Pulse Ox
98.4 F 81 14 129/85 95
04/19/24 07:31 04/19/24 08:30 04/19/24 08:30 04/19/24 08:00 04/19/24 08:30
I&O
04/18/24 04/19/24 04/20/24
06:59 06:59 06:59
Intake Total 1480 / 1490 1270 / 1280 20 / 20
Output Total 1200 / 1700 2225 / 2225 700 / 700
Balance 280 / -210 -955 / -945 -680 / -680
--- NOTE | 2024-04-19 09:28 | PN.CDI ---
CDI
- -
CDI:
Physician Documentation Request
Admit Date: 04/16/24 06:47
Dear Doctor Do,
Patient admitted with GI blled, acute blood loss anemia and hypovolemic shock
The diagnosis of sepsis was documented on 04/16 in ED record , but is not consistently noted in subsequent documentation.
'Discharge Problem: Sepsis, Weakness, GI bleed'
04/16 presenting heart rate 100-112, respiratory rate 20-30, afebrile, wbc 14.7
Please clarify the following:
____ - Sepsis was present on admission
____ - Sepsis was ruled out
____ - SIRS due to a non-infectious source
- Indicate the known or suspected etiology
- Indicate if there is associated organ dysfunction, such as renal or respiratory failure
____ - Other
Use of terms such as suspected, likely, concern for, or probable (associated with a specific diagnosis that is being evaluated, monitored, or treated as if it exists) are acceptable and can be coded in the inpatient setting, when documented at the
time of discharge.
Thank you,
Pam Mederos RN, BSN
CDI Specialist
tiger text
Please use your independent medical judgment in providing your response.
--- NOTE | 2024-04-19 10:45 | W.PN.GI.CBS2 ---
Addendum entered and electronically signed by Annalee Mead MD 04/19/24 15:55:
I saw and examined the patient.
The CONSULTING MARINE ENGINEER or PA's note was reviewed and I agree with the note.
Comment: 38 yo M p/w GIB.
His EGD 04/16 had no blood up to the third portion of the duodenum. He did have 3 cratered ulcers but they had no stigmata and no blood around them. These may be the source of bleeding. Hb is now stable - last melena yesterday, had small amount of
red stool this AM per patient (not in flowsheet). If bleeding resumes t/c nus med vs cscope.
Trend Hb, clear liquid diet, monitor BM, avoid NSAIDs.
Original Note:
Today's Communication / Plan
-
04/16/2024 -underwent urgent EGD with no blood throughout the upper GI tract but he did have significant esophagitis and roughly 3 superficial ulcers with no stigmata in the second portion -no endoscopic treatment but biopsied for H. pylori.
Etiology likely NSAID induced
concern for bleeding further down in GI tract then where EGD completed to with now improved bleeding
cont clear diet
PPI gtt another 24 hours then transition to IV BID if stable
total 4 units transfused
nuclear scan held as bleeding improved-- if recurrent consider proceeding
if + then consider proceed for IR intervention
can also consider colonoscopy if bleeding persist to rule out right colon source
repeat INR stable 1.15, platelets 151
close follow-- for transfer to tele
Assessment / Plan
-
The pt is 38 yo male with a PMH significant for Lyme's disease recently diagnosed who presented to the ER with complaints of weakness, fatigue, and syncope at home, found to have findings concerning for significant GI bleed with a drop of
hemoglobin from 9.7-4.1 after admission then improved. He had a prolonged hospitalization at [facility] for workup of fatigue and fevers found to have findings consistent with Lyme disease treated with antibiotics and antivirals, for
follow-up with infectious disease outpatient. He is continue with symptoms and had syncope at home x 2-3 episodes prompting evaluation in the emergency room. He had nausea with vomiting of coffee-ground emesis that was heme positive along with a
large volume dark red passage of blood from his rectum. 04/[address] with IV contrast with no inflammatory process then CTA 04/16 with probable blood in lumen right colon and distal SB no active bleed. He had been taking Aleve twice a day for
the past week prior to admission. No hx liver issues and normal liver on IV contrast Ct on admission.
Problem list:
-Syncope
-GI bleed, with coffee-ground emesis and large volume burgundy stool with recent use of NSAIDs, course of antibiotics with elevated BUN on admission
-EGD with esophagitis /3 ulcers
-abdominal pain
-Recent diagnosis of Lyme's disease
-Fatigue, fevers, weakness, likely secondary to Lyme's disease
-Lactic acidosis
-Mild thrombocytopenia- resolved
-Elevated INR- improved
-umbilical hernia
-gallstones
Laboratory Tests
04/17/24 04/17/24 04/17/24
01:21 05:49 12:34
Hgb 7.7 L 7.0 L 8.2 L
04/17/24 04/18/24
19:23 05:10
Hgb 9.7 L 7.6 L D
Laboratory Tests
04/18/24 04/18/24 04/19/24
15:21 21:29 03:28
Hgb 9.6 L D 9.8 L 9.9 L
Recommendations:
04/16/2024 -underwent urgent EGD with no blood throughout the upper GI tract but he did have significant esophagitis and roughly 3 superficial ulcers with no stigmata in the second portion -no endoscopic treatment but biopsied for H. pylori.
Etiology likely NSAID induced
concern for bleeding further down in GI tract then where EGD completed to with now improved bleeding
cont clear diet
PPI gtt another 24 hours then transition to IV BID if stable
total 4 units transfused
nuclear scan held as bleeding improved-- if recurrent consider proceeding
if + then consider proceed for IR intervention
can also consider colonoscopy if bleeding persist to rule out right colon source
repeat INR stable 1.15, platelets 151
close follow-- for transfer to tele
Subjective
Subjective
Date of Service: April 19, 2024
last stool yesterday afternoon black on clear diet , abdominal pain with some improvement
Objective
Data Reviewed
Laboratory Data:
Laboratory Results
04/19/24 03:28
04/19/24 03:28
Laboratory Results
PT 14.5 Sec (11.4-14.6) 04/19/24 03:28
INR 1.15 04/19/24 03:28
APTT 24.0 Sec (23.4-35.0) 04/17/24 05:49
Total Bilirubin 0.4 mg/dl (0.2-1.3) 04/18/24 05:10
AST 17 U/L (17-59) 04/18/24 05:10
ALT 17 U/L (0-50) 04/18/24 05:10
Alkaline Phosphatase 54 U/L (38-126) 04/18/24 05:10
Lipase 79 U/L (23-300) 04/16/24 01:53
Vital Signs and I&O:
Vital Signs
Temp Pulse Resp BP Pulse Ox
98.4 F 81 14 129/85 95
04/19/24 07:31 04/19/24 08:30 04/19/24 08:30 04/19/24 08:00 04/19/24 08:30
I&O
04/18/24 04/19/24 04/20/24
06:59 06:59 06:59
Intake Total 1480 / 1490 1270 / 1280 30 / 30
Output Total 1200 / 1700 2225 / 2225 700 / 700
Balance 280 / -210 -955 / -945 -670 / -670
Physical Exam
Physical Exam
HEENT: Anicteric and Moist mucous membranes
Cardiology: Normal Sinus Rhythm
Pulmonary: Clear
GI: Soft, Non Distended and Tender (lower abdominal pain )
Extremities: No Edema
Neuro: Non Focal
--- NOTE | 2024-04-19 11:49 | W.PN.INTV ---
Today's Communication / Plan
Recommendations
Follow H&H
Continue PPI
Advance diet as per GI
Analgesia, monitor respiratory status closely. Using narcotics as needed
Transfer to telemetry
Critical care team will sign off. Please call pulmonary if any respiratory issues arise.
Sign off
Assessment
-
Patient is a 38-year-old male with previous history of peripheral neuropathy, back pain, recently treated for Lyme's disease presenting to ER for syncope. He was recently hospitalized at [facility] for diffuse myalgias, arthralgias and fever. He was
diagnosed with Lyme disease and placed on doxycycline. He was then readmitted for severe sepsis treated with IV antibiotics including linezolid and ceftriaxone. Upon discharge she had ongoing fevers, joint pain for which she was taking Aleve twice
a day. He then developed significant generalized weakness and fatigue with new syncope. Reportedly syncopized 3 times at home. Upon arrival to ER, there was notably a large bloody bowel movement and hematemesis. Hemoglobin initially 9.7 which
then decreased to 4.1. He is transfused PRBCs and admitted to ICU for acute GI bleed, suspected upper.
Acute UGIB with hematemesis and hematochezia s/p EGD with duodenal ulcer 04/16/24
Acute blood loss anemia
Recent NSAID use
Generalized weakness/fatigue
Syncopal episode
Myalgias/arthralgias
Recent Lyme's disease/sepsis
Fever
Tachycardia
Lactic acidosis
Hyperglycemia
Metabolic acidosis
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
Anxiety, severe with panic attacks
Hypertension
Depression
Dorsalgia/neuralgia, sciatica R side
Obesity, BMI 31
Former smoker
Plan
-
Remains hemodynamically stable
No further bowel movement since last night
Not tachycardic
Reports improvement in abdominal pain
-
UGIB likely from NSAID use, GI consult
PPI continued
EGD - with duodenal ulcer with no stigmata of blood around them.
Diet clears-tolerated
Aspiration precautions, HOB > 30 degrees
-
Hemoglobin 9.9 this morning. Has received 3 units of packed red blood cells. Initial hemoglobin was 4.1.
Does not seem to be actively bleeding
GI correspondence reviewed:
Nuclear scan never performed as the patient never replied.
Follow H&H
No plans for additional intervention/procedure at this point.
-
History of HTN
Hold home meds until stable
Monitor on telemetry
-
Diffuse myalgias/arthralgias, ongoing
Continue Tylenol as well.
Minimize narcotic
Continue to follow respiratory status closely with ongoing narcotic
History of recent Lyme dx.
Afebrile without leukocytosis 04/18/2024
No fever since admission
Blood cultures are sent
Follow fever trend, WBC count
Lactate elevated on admission, continue to trend until <2
Transferred to telemetry.
Critical care team will sign off.
Please call with questions

Diagnostic Data
Chest X-Ray:
CT Scan: AP 04/16/24- No CT evidence for an acute inflammatory process of the abdomen or pelvis.
Echo:
PFT's:
Reports and relevant images were personally reviewed.
-----
Subjective Dataa
Subjective Data
Date of Service:
Date of Service: April 19, 2024
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
Subjective:
Reports improvement in abdominal pain
No significant nausea or vomiting
Tolerated clear liquid diet
No further bowel movement since last night
Review of Systems
General: Fever (n)
Cardiopulmonary: Dyspnea (none at rest), Cough (n) and Sputum Production (n)
GI: Abdominal Pain (n) and Nausea (n)
Objective Data
Data Reviewed
Vital Signs / I&O / Oxygen:
Vital Signs
Temp Pulse Resp BP Pulse Ox
98.4 F 85 19 130/82 96
04/19/24 07:31 04/19/24 10:00 04/19/24 10:00 04/19/24 10:00 04/19/24 10:00
Intake and Output
04/18/24 04/19/24 04/20/24
06:59 06:59 06:59
Intake Total 1480 / 1490 1270 / 1280 390 / 390
Output Total 1200 / 1700 2225 / 2225 700 / 700
Balance 280 / -210 -955 / -945 -310 / -310
SaO2 96
Physical Exam
General: Comfortable and Other (NAD)
HEENT: Normocephalic, Anicteric and Moist Mucous Membranes
Cardiovascular: S1-S2 and Regular Rhythm
Respiratory: Clear and Non-Labored Respirations
GI: Soft, Non Distended and Tender (mildly, no peritoneal signs. )
Neurology: Awake, Alert, Oriented and No Motor Deficits
Skin: Warm, Dry and Good Color
Labs/Micro/Reports
Lab Data
04/19/24 03:28
04/19/24 03:28
Laboratory Results
04/19/24
03:28
PT 14.5
INR 1.15
Microbiology
04/16/24 03:01 Blood/Venous Blood Culture - Preliminary
No Growth in 72 hours- Final report to follow
04/16/24 03:01 Blood/Venous Blood Culture - Preliminary
No Growth in 72 hours- Final report to follow
--- NOTE | 2024-04-19 12:53 | PTCARENOTE ---
pt c/o dizziness while up in chair. vitals stable. no stool. switched to a recliner chair and pt sleeping. Dr Wren made aware and ivf ordered.
[2024-04-19] MEDS: NSS 1000 IV ×2 (13:02→23:46)
[2024-04-19] MEDS: TYLENOL 1000 MG PO ×2 (16:03→22:36)
--- NOTE | 2024-04-19 16:26 | CHAP ---
Request received to visit with Kourtney Jose Francisco, but he was in the bathroom and then on the phone. Will try again tomorrow.
[2024-04-19] MEDS: ROXICODONE 10 MG PO (22:52)
[2024-04-20 03:51] VITALS: BP 144/90
--- NOTE | 2024-04-20 07:29 | W.PN.HOSP.TC ---
Today's Communication/Plan
-
Trend Hgb
Possible discharge tomorrow if hemoglobin stable
Assessment / Plan
Assessment / Plan
A/P: Patient is a 38y M with PMH significant for prior lumbar fusion who presents to ED complaining of multiple syncopal episodes in the past 24 hours.
GI Bleed - Likely Upper
Acute Blood Loss Anemia secondary to the above
Hypovolemic Shock secondary to the above
Lactic Acidosis secondary to the above
-Appreciate GI input, EGD 04/16 showed- Nonbleeding duodenal ulcers with a clean ulcer base in second portion,LA grade C esophagitis without bleeding
-Hemoglobin now stable status post 4 units of blood
-Hemoglobin 9.3 today, was 9.9, was 9.8
-Protonix drip changed to Protonix 40 mg IV twice daily, diet advanced to full liquids
-He will need to be discharged on Protonix 40 mg p.o. twice daily for 8 weeks, then daily
-Follow-up with GI in the office in 3-4 weeks
-Complete avoidance of NSAIDs
SIRS due to a non-infectious source
-Resolved
Lightheadedness
-Likely positional, from laying down in bed
-Continue IV fluids, encourage patient to sit up
Recent Sepsis Hospitalization
Lyme Disease
- Patient is currently afebrile and initial leukocytosis was likely inaccurate. Repeat WBC normalized.
- No specific evidence of acute / recurrent infectious process at present.
- Initial CT A/P was unremarkable.
- Observe off of additional abx for now.
- Follow temperature curve, any culture data, etc.
Lumbar DDD
- Stable. No acute back pain or similar issues.
- s/p lumbar fusion done 12 years ago.
DVT Prophylaxis: SCDs secondary to GI bleed
Code Status: Full
Total time spent to see the patient on the floor, examine the patient, review data and lab results, discuss treatment plan with patient, nursing staff around 45 minutes.
Physical Exam
General: No acute distress
HEENT: Normocephalic, Atraumatic, EOMI, MMM
Respiratory: Clear to Auscultation bilaterally
Cardiac: Normal S1/S2, Regular Rate and Rhythm
GI: Soft, Nontender, Nondistended, Normal Bowel Sounds
Extremities: No Clubbing, Cyanosis, or Edema
Neuro: Nonfocal/Grossly Intact
Psych: Calm, Cooperative
Derm: No Visible lesions
Anticipated Discharge: Within 24 hours
Subjective/Interval History
-
Date of Service: April 20, 2024
Patient had small amount of stool that was black, he thinks it is residual from previous bleeding. Lightheadedness resolved. No fever, no vomiting.
Objective Data
-
Labs:
Laboratory Results
04/20/24
07:27
WBC Pending
Hgb Pending
Hct Pending
Plt Count Pending
Vital Signs:
Vital Signs
Temp Pulse Resp BP Pulse Ox
98.3 F 61 16 144/90 97
04/20/24 03:51 04/20/24 03:51 04/20/24 03:51 04/20/24 03:51 04/20/24 03:51
I&O
04/19/24 04/20/24 04/21/24
06:59 06:59 06:59
Intake Total 1270 / 1280 420 / 420
Output Total 2225 / 2225 700 / 700
Balance -955 / -945 -280 / -280
[2024-04-20 07:30] VITALS: BP 148/88
[2024-04-20 07:55] LABS: Hematocrit 26.5 % (39.0-52.0); Hemoglobin 9.3 g/dL (13.0-18.0); Mean Corp Hgb Conc. 35.1 g/dL (33.0-37.0); Mean Corpuscular Hgb 28.4 pg (27.0-31.0); Mean Corpuscular Volume 80.8 fL (80.0-94.0); Mean Platelet Volume 10.7 fL (7.4-10.4); Platelet Count 172 10^3/uL (130-400); Red Blood Cell Count 3.28 10^6/uL (4.70-6.10); Red Cell Dist. Width 15.4 % (11.5-14.5); White Blood Cell Count 8.5 10^3/uL (4.8-10.8)
[2024-04-20] MEDS: TYLENOL 1000 MG PO ×3 (08:51→21:21)
[2024-04-20] MEDS: NSS 1000 IV (10:06)
[2024-04-20 11:30] VITALS: BP 138/80
[2024-04-20] MEDS: PROTONIX 100 IV (11:30)
--- NOTE | 2024-04-20 14:10 | W.PN.GI.CBS2 ---
Addendum entered and electronically signed by FADUMO Mackay 04/21/24 14:56:
addendum-- most likely etiology of GI bleeding duodenal ulcers now improved bleeding and stable
Addendum entered and electronically signed by Annalee Mead MD 04/20/24 17:03:
I saw and examined the patient.
The HEALTH UNIT SUPERVISOR or PA's note was reviewed and I agree with the note.
Comment: 38 yo M here with GIB found to have DU.
Bleeding seems to have stopped last BM last pm, Hb stable.
As below ppi bidx8 weeks the daily.
If hb stable with no overt bleeding, ok discharge tomorrow am from GI POV.
GI will sign off pls call with ?S.
Original Note:
Today's Communication / Plan
-
noted esophagitis.duodenal ulcer and ? bleeding further down Small bowel now resolving
abdominal pain improved
advance to full liquid diet if tolerating low residue
transition to IV PPI BID to transition to PO BID x 8 weeks then daily on discharge
total 4 units transfused
if recurrent bleeding consider nuclear bleeding scan vs colonoscopy
OP follow up 3-4 weeks left info on discharge
NSAID avoidance discussed
family updated at bedside all questions answered
Assessment / Plan
-
The pt is 38 yo male with a PMH significant for Lyme's disease recently diagnosed who presented to the ER with complaints of weakness, fatigue, and syncope at home, found to have findings concerning for significant GI bleed with a drop of
hemoglobin from 9.7-4.1 after admission then improved. He had a prolonged hospitalization at [facility] for workup of fatigue and fevers found to have findings consistent with Lyme disease treated with antibiotics and antivirals, for
follow-up with infectious disease outpatient. He is continue with symptoms and had syncope at home x 2-3 episodes prompting evaluation in the emergency room. He had nausea with vomiting of coffee-ground emesis that was heme positive along with a
large volume dark red passage of blood from his rectum. 04/[address] with IV contrast with no inflammatory process then CTA 04/16 with probable blood in lumen right colon and distal SB no active bleed. He had been taking Aleve twice a day for
the past week prior to admission. No hx liver issues and normal liver on IV contrast Ct on admission. s/p EGD with esophagitis and duodenal ulcers
Problem list:
-Syncope
-GI bleed, with coffee-ground emesis and large volume burgundy stool with recent use of NSAIDs, course of antibiotics with elevated BUN on admission
-EGD with esophagitis /3 ulcers
-abdominal pain
-Recent diagnosis of Lyme's disease
-Fatigue, fevers, weakness, likely secondary to Lyme's disease
-Lactic acidosis
-Mild thrombocytopenia- resolved
-Elevated INR- improved
-umbilical hernia
-gallstones
Laboratory Tests
04/17/24 04/17/24 04/17/24
01:21 05:49 12:34
Hgb 7.7 L 7.0 L 8.2 L
04/17/24 04/18/24
19:23 05:10
Hgb 9.7 L 7.6 L D
Laboratory Tests
04/18/24 04/18/24 04/19/24
15:21 21:29 03:28
Hgb 9.6 L D 9.8 L 9.9 L
Laboratory Tests
04/20/24
07:27
Hgb 9.3 L
Recommendations:
noted esophagitis.duodenal ulcer and ? bleeding further down Small bowel now resolving
abdominal pain improved
advance to full liquid diet if tolerating low residue
transition to IV PPI BID to transition to PO BID x 8 weeks then daily on discharge
total 4 units transfused
if recurrent bleeding consider nuclear bleeding scan vs colonoscopy
OP follow up 3-4 weeks left info on discharge
NSAID avoidance discussed
family updated at bedside all questions answered
Subjective
Subjective
Date of Service: April 20, 2024
04/19 small amount of black stools on clear diet, abdominal pain improved
Objective
Data Reviewed
Laboratory Data:
Laboratory Results
04/20/24 07:27
04/19/24 03:28
Laboratory Results
PT 14.5 Sec (11.4-14.6) 04/19/24 03:28
INR 1.15 04/19/24 03:28
APTT 24.0 Sec (23.4-35.0) 04/17/24 05:49
Total Bilirubin 0.4 mg/dl (0.2-1.3) 04/18/24 05:10
AST 17 U/L (17-59) 04/18/24 05:10
ALT 17 U/L (0-50) 04/18/24 05:10
Alkaline Phosphatase 54 U/L (38-126) 04/18/24 05:10
Lipase 79 U/L (23-300) 04/16/24 01:53
Vital Signs and I&O:
Vital Signs
Temp Pulse Resp BP Pulse Ox
98.0 F 68 16 138/80 99
04/20/24 11:30 04/20/24 11:30 04/20/24 11:30 04/20/24 11:30 04/20/24 11:30
I&O
04/19/24 04/20/24 04/21/24
06:59 06:59 06:59
Intake Total 1270 / 1280 420 / 420
Output Total 2225 / 2225 700 / 700
Balance -955 / -945 -280 / -280
Physical Exam
Physical Exam
HEENT: Anicteric and Moist mucous membranes
Cardiology: Normal Sinus Rhythm
Pulmonary: Clear
GI: Soft, Non Distended and Non Tender (marked improvement )
Extremities: No Edema
Neuro: Non Focal
[2024-04-20 15:45] VITALS: BP 146/86
[2024-04-20 19:25] VITALS: BP 138/75
[2024-04-20] MEDS: NSS (PRESERVATIVE FREE) 10 ML IV (21:22)
[2024-04-20] MEDS: PROTONIX IV 40 MG IV (21:22)
[2024-04-20 23:35] VITALS: BP 140/90
[2024-04-20] MEDS: ROXICODONE 10 MG PO (23:40)
[2024-04-21 03:15] VITALS: BP 150/94
[2024-04-21 06:00] VITALS: BMI 30.2
[2024-04-21] MEDS: PROTONIX IV 40 MG IV (07:29)
[2024-04-21] MEDS: FLUSH (NSS) 2 FLUSH IV (07:30)
[2024-04-21] MEDS: NSS (PRESERVATIVE FREE) 10 ML IV (07:30)
[2024-04-21] MEDS: TYLENOL 1000 MG PO (07:30)
[2024-04-21 07:44] VITALS: BP 125/81
--- NOTE | 2024-04-21 09:00 | W.PN.HOSP.TC ---
Today's Communication/Plan
-
Cleared by GI for discharge today
Assessment / Plan
Assessment / Plan
A/P: Patient is a 38y M with PMH significant for prior lumbar fusion who presents to ED complaining of multiple syncopal episodes in the past 24 hours.
GI Bleed - Likely Upper
Acute Blood Loss Anemia secondary to the above
Hypovolemic Shock secondary to the above
Lactic Acidosis secondary to the above
-Appreciate GI input, EGD 04/16 showed- Nonbleeding duodenal ulcers with a clean ulcer base in second portion,LA grade C esophagitis without bleeding
-Hemoglobin now stable status post 4 units of blood
-Hemoglobin 10.9 today, was 9.3, was 9.9, was 9.8
-Protonix drip changed to Protonix 40 mg IV twice daily, tolerating low residue diet
-Cleared by GI for discharge on Protonix 40 mg p.o. twice daily for 8 weeks, then daily
-Follow-up with GI in the office in 3-4 weeks
-Complete avoidance of NSAIDs discussed with patient, he reports understanding
SIRS due to a non-infectious source
-Resolved
Lightheadedness
-Likely positional, from laying down in bed
-Resolved
Recent Sepsis Hospitalization
Lyme Disease
- Patient is currently afebrile and initial leukocytosis was likely inaccurate. Repeat WBC normalized.
- No specific evidence of acute / recurrent infectious process at present.
- Initial CT A/P was unremarkable.
- Observe off of additional abx for now.
- Follow temperature curve, any culture data, etc.
Lumbar DDD
- Stable. No acute back pain or similar issues.
- s/p lumbar fusion done 12 years ago.
DVT Prophylaxis: SCDs secondary to GI bleed
Code Status: Full
Physical Exam
General: No acute distress
HEENT: Normocephalic, Atraumatic, EOMI, MMM
Respiratory: Clear to Auscultation bilaterally
Cardiac: Normal S1/S2, Regular Rate and Rhythm
GI: Soft, Nontender, Nondistended, Normal Bowel Sounds
Extremities: No Clubbing, Cyanosis, or Edema
Neuro: Nonfocal/Grossly Intact
Psych: Calm, Cooperative
Derm: No Visible lesions
Anticipated Discharge: Today
Subjective/Interval History
-
Date of Service: April 21, 2024
Patient had tiny amount of black stool. No fever, no vomiting.
Objective Data
-
Vital Signs:
Vital Signs
Temp Pulse Resp BP Pulse Ox
98.1 F 63 16 125/81 97
04/21/24 07:44 04/21/24 07:44 04/21/24 07:44 04/21/24 07:44 04/21/24 07:44
I&O
04/20/24 04/21/24 04/22/24
06:59 06:59 06:59
Intake Total 420 / 420 1310 / 1310
Output Total 700 / 700
Balance -280 / -280 1310 / 1310
[2024-04-21 09:31] LABS: Hematocrit 31.2 % (39.0-52.0); Hemoglobin 10.9 g/dL (13.0-18.0); Mean Corp Hgb Conc. 34.9 g/dL (33.0-37.0); Mean Corpuscular Hgb 28.7 pg (27.0-31.0); Mean Corpuscular Volume 82.1 fL (80.0-94.0); Mean Platelet Volume 10.4 fL (7.4-10.4); Platelet Count 223 10^3/uL (130-400); White Blood Cell Count 8.6 10^3/uL (4.8-10.8)
--- NOTE | 2024-04-21 11:23 | PN.CDI ---
CDI
- -
CDI:
Physician Documentation Request
Admit Date: 04/16/24 06:47
Dear Doctor Sea
Patient admitted for evaluation and management of GI bleed, with coffee-ground emesis and large volume burgundy stool.
04/16 EGD found esophagitis and duodenal ulcers in the second portion of the duodenum.
After careful study, what is the most likely etiology of GI bleeding:
Esophagitis
Duodenal ulcer
Multifactorial (please specify)
Other
Use of terms such as suspected, likely, concern for, or probable (associated with a specific diagnosis that is being evaluated, monitored, or treated as if it exists) are acceptable and can be coded in the inpatient setting, when documented at the
time of discharge.
Thank you,
Pam Mederos RN, BSN
CDI Specialist
tiger text
Please use your independent medical judgment in providing your response.
[2024-04-21 11:30] VITALS: BP 132/95
--- NOTE | 2024-04-21 11:49 | CM ---
Entered order for discharge.
SPoke with pt He said he is ready for discharge.
His brother Carlos will drive him home.
He declined need for VN at dc.
PLAN Home no needs
== END 2024-04-21 13:00 | disposition home or self-care (01) | DRG 377 ==
LOC: 3 WEST ACU 06:47
PROVIDERS: Emergency Medicine; Internal Medicine; Nurse Practitioner Adult Health; Nurse Practitioner Family; Nurse Practitioner Primary Care; ADMITTING PHYSICIAN Hospitalist; ATTENDING PHYSICIAN Family Medicine; CONSULT PHYSICIAN Internal Medicine; EMERGENCY PHYSICIAN Student in an Organized Health Care Education/Training Program; FAMILY PHYSICIAN Nurse Practitioner
PROC: 0DB78ZX Excision of Stomach, Pylorus, Via Natural or Artificial Opening Endoscopic, Diagnostic (ICD-10-PCS; 2024-04-16)
DX: K26.4 Chronic or unspecified duodenal ulcer with hemorrhage (principal); K20.91 Esophagitis, unspecified with bleeding; R57.1 Hypovolemic shock; D62 Acute posthemorrhagic anemia; E87.20 Acidosis, unspecified; R65.10 Systemic inflammatory response syndrome (SIRS) of non-infectious origin without acute organ dysfunction; K92.2 Gastrointestinal hemorrhage, unspecified; T39.395A Adverse effect of other nonsteroidal anti-inflammatory drugs [NSAID], initial encounter; Y84.8 Other medical procedures as the cause of abnormal reaction of the patient, or of later complication, without mention of misadventure at the time of the procedure; E66.9 Obesity, unspecified; Z68.31 Body mass index [BMI] 31.0-31.9, adult
CPT/HCPCS: 88305; 36430; 74174; 74177; 80048; 80053; 81003; 82607; 82728; 82746; 83540; 83550; 83605; 83615; 83690; 85014; 85018; 85025; 85027; 85610; 85730; 86850; 86900; 86901; 86920; 87040; 87811; 88342; 93005; 96361; 96365; 96366; 96367; 96375; 97163; 97167; 99291; P9016; Q9967

== ENCOUNTER 2024-07-11 06:34 | Day surgery (SDC) | payer OTHER, SELFPAY | END 2024-07-11 10:17 | disposition home or self-care (01) | LOC: GI 06:34 | PROVIDERS: ATTENDING PHYSICIAN Internal Medicine | DX: Z12.11 Encounter for screening for malignant neoplasm of colon (principal); D50.9 Iron deficiency anemia, unspecified; K63.5 Polyp of colon; K57.30 Diverticulosis of large intestine without perforation or abscess without bleeding; K44.9 Diaphragmatic hernia without obstruction or gangrene; K22.89 Other specified disease of esophagus; K26.9 Duodenal ulcer, unspecified as acute or chronic, without hemorrhage or perforation; K20.90 Esophagitis, unspecified without bleeding | CPT/HCPCS: 45385; 43239; 88305; 88342 ==

== ENCOUNTER → 2024-07-19 20:19 | Outpatient (REF) | payer OTHER, SELFPAY | LOC: MRI 3T 20:19 | PROVIDERS: ATTENDING PHYSICIAN Nurse Practitioner | DX: R41.89 Other symptoms and signs involving cognitive functions and awareness (principal) | CPT/HCPCS: 70553; A9575 ==

== ENCOUNTER → 2024-08-22 09:08 | Outpatient (REF) | payer BC, SELFPAY | LOC: DHSLP 09:08 | PROVIDERS: ATTENDING PHYSICIAN Nurse Practitioner | DX: G47.33 Obstructive sleep apnea (adult) (pediatric) (principal) | CPT/HCPCS: 95800 ==